=== PATIENT | female | born 1950 | race Caucasian/White ===

== ENCOUNTER 2017-11-24 14:30 | Inpatient (IN) | payer MEDICARE, BC ==
[2017-11-24 15:41] LABS: Hemoglobin 11.6 g/dL (12.0-16.0); Mean Corpuscular HGB CONC 35.4 g/dL (32.0-36.0); Mean Corpuscular Hemoglobin 30.8 pg (27.0-31.0); Mean Corpuscular Volume 86.9 fl (81.0-99.0); Mean Platelet Volume 7.2 fL (7.4-10.4); Platelet Count 279 thou/uL (130-400); RBC Distribution Width 11.5 % (11.5-14.5); Red Blood Cell (RBC) Count 3.78 mill/uL (4.20-5.40); White Blood Cell (WBC) Count 6.7 thou/uL (4.8-10.8)
[2017-11-24 16:00] LABS: Anion Gap 16 mmol/L (10-20); BUN (Urea Nitrogen) 29 mg/dL (9.8-20.1); Calc. Creatinine Clearance 0 mL/min (70-130); Calcium 8.3 mg/dL (7.8-10.44); Carbon Dioxide 24 mmol/L (23-31); Chloride 98 mmol/L (98-107); Estimated GFR-MDRD 31; Glucose 72 mg/dL (80-115); Sodium 135 mmol/L (136-145)
[2017-11-25] MEDS ORDERED: Midazolam HCl 5 mg/5 ml Vial ONE (06:32)
[2017-11-25] MEDS ORDERED: Vecuronium 10 MG VIAL ONE ×2 (06:32→14:35)
[2017-11-25] MEDS ORDERED: Fentanyl 100 MCG/2 ML VIAL ONE (06:32)
[2017-11-25] MEDS ORDERED: Dexmedetomidine 200 MCG/2 ML VIAL ONE (06:32)
[2017-11-25] MEDS ORDERED: Levofloxacin 500 mg/D5W 100 ml Premix Bag ONE (06:33)
[2017-11-25] MEDS ORDERED: Heparin 10,000 UNITS/1 ML VIAL 30,000 UNITS in Sodium Chloride 0.9% 1,000 ML FS SCH (06:45)
[2017-11-25] MEDS ORDERED: Insulin Regular 300 UNITS/3 ML VIAL ONE (08:12)
[2017-11-25] MEDS ORDERED: Albumin 5% 500 ML ONE ×2 (08:12→09:41)
[2017-11-25] MEDS ORDERED: Acetaminophen 325 MG TAB PO PRN (11:28)
[2017-11-25] MEDS ORDERED: Promethazine HCl 25 MG/ML VIAL IM PRN (11:28)
[2017-11-25] MEDS ORDERED: niCARdipine HCl 25 MG in Sodium Chloride 0.9% 250 ML 240 ML IVPB PRN (11:28)
[2017-11-25] MEDS ORDERED: Bisacodyl 10 MG SUPP PR PRN (11:28)
[2017-11-25] MEDS ORDERED: Guaifenesin DM 100-10/5 ML UDCUP PO PRN (11:28)
[2017-11-25] MEDS ORDERED: Phenylephrine 10 MG/NS 250 ML 250 ML IVPB PRN (11:28)
[2017-11-25] MEDS ORDERED: Post-Op Insulin Drip Protocol IVPB ONE (11:28)
[2017-11-25] MEDS ORDERED: Bisacodyl 5 MG TAB PO PRN (11:28)
[2017-11-25] MEDS ORDERED: Ondansetron HCl/PF 4 MG/2 ML Vial IVP PRN (11:28)
[2017-11-25] MEDS ORDERED: hydrALAZINE 20 MG/ML VIAL SLOW IVP PRN (11:28)
[2017-11-25] MEDS ORDERED: DOPamine 400 MG/D5W 250 ML 250 ML IVPB PRN (11:28)
[2017-11-25] MEDS ORDERED: Hetastarch 6% 500 ML 500 ML IVPB PRN (11:28)
[2017-11-25] MEDS ORDERED: Fentanyl 100 MCG/2 ML VIAL SLOW IVP PRN (11:28)
[2017-11-25] MEDS ORDERED: Mag-Al 1200 mg/1200 mg/30 ML UDCUP PO PRN (11:28)
[2017-11-25] MEDS ORDERED: Dextrose 50% Abboject 50 ML SYRINGE SLOW IVP PRN (11:43)
[2017-11-25] MEDS ORDERED: Insulin Regular 300 UNITS/3 ML VIAL SC PRN (11:43)
[2017-11-25] MEDS ORDERED: Dextrose 5% in Water 1,000 ML IV PRN (11:43)
--- NOTE | 2017-11-25 11:59 | OP ---
DATE OF PROCEDURE: 11/25/2017 PREOPERATIVE DIAGNOSES: Coronary artery disease, aortic valve insufficiency and stenosis. POSTOPERATIVE DIAGNOSES: Coronary artery disease, aortic valve insufficiency and stenosis. PROCEDURE: Coronary bypass graft x3, left internal mammary artery of good quality to a 1.25-mm LAD, saphenous vein good quality to a 1.5 mm OM 1 and a 2 mm OM2. SURGEON: Dr. Roman Priest RF TECHNICIAN: Dr. Smart PROCEDURE IN DETAIL: After adequate anesthesia had been obtained, the patient was prepped and draped . A JEMIMA was performed by Dr. Carrero and reviewed with Dr. Quintanilla and the patient had trivial aortic i nsufficiency and mild aortic valve stenosis and nothing was done with the valve. The patient was not deemed a candidate for an AVR based on review of this study. Sternotomy was performed while Dr. Ruiz khalil harvested the left greater saphenous vein using EVH technique. Following sternotomy, the le ft internal mammary artery was harvested entering the pleura in one small area. Heparinization was g iven, the mammary divided and passed posterior to the thymus gland. Aorta and right atrium were pedro ulated and after institution of cardiopulmonary bypass, vessels were inspected for grafting. The aor ta was cross-clamped and a liter of cold blood cardioplegia was given through the aortic root. The a ortic root remained tense during the cardioplegic administration, although there was some left ventri cular distention. Following completion of this, distal anastomoses were completed. The clamp was re moved and a partial occluding clamp placed, and 2 proximal anastomoses performed and marked with ring s. Following completion of this, the patient was weaned from cardiopulmonary bypass, cannula was rem jonelle, and the aortic cannulation site was secured with an additional 4-0 Prolene. Mediastinal and le ft pleural drains were placed. All suture lines were reinspected for bleeding due to some oozing. F ollowing this, the sternum was reapproximated with #7 interrupted wire using vancomycin paste on the sternal edges, platelet rich blood, and platelet-poor plasma. Subcutaneous tissue and skin were clos ed in layers.
[2017-11-25 12:00] LABS: #Eosinphils 0.1 thou/uL (0.0-0.7); #Lymphocytes 1.1 thou/uL (1.20-3.40); #Monocytes 0.3 thou/uL (0.11-0.59); #Neutrophils 10.1 thou/uL (1.40-6.50); %Basophils 0.1 % (0.0-1.0); %Eosinophils 0.7 % (0.0-10.0); %Lymphocytes 9.6 % (21.0-51.0); %Monocytes 2.3 % (0.0-10.0); %Neutrophils 87.2 % (42.0-75.0); Hemoglobin 6.8 g/dL (12.0-16.0); Mean Corpuscular Hemoglobin 29.9 pg (27.0-31.0); Mean Platelet Volume 6.8 fL (7.4-10.4); Platelet Count 127 thou/uL (130-400); RBC Distribution Width 11.4 % (11.5-14.5); Red Blood Cell (RBC) Count 2.26 mill/uL (4.20-5.40); White Blood Cell (WBC) Count 11.6 thou/uL (4.8-10.8)
[2017-11-25 12:06] LABS: INR-International Normal Ratio 1.5; PTT 41.4 SEC (22.9-36.1); Prothrombin Time 18.9 SEC (12.0-14.7)
[2017-11-25 12:07] LABS: ALV-art Gradient 173.025 (0-20); Actual Bicarbonate (HCO3a) 19.8 mEq/L (22-26); Base Excess (BEa) -3.2 mEq/L (0 (+/-) 2.5); CO2 Tension 27.1 mmHg (35.0-45.0); Calcium, Ionized 0.8 mmol/L (1.12-1.30); Hematocrit-ABG 19.3 % (36.0-47.0); Hemoglobin (Hb) 6.7 g/dL (12.0-16.0); O2 Tension (PaO2) 149.6 mmHg (80.0-100.0); Puncture Site ALINE; pH, Arterial 7.48 (7.35-7.45)
[2017-11-25 12:21] VITALS: BMI 28.2
[2017-11-25 12:25] LABS: Anion Gap 12 mmol/L (10-20); BUN (Urea Nitrogen) 28 mg/dL (9.8-20.1); Calc. Creatinine Clearance 51 mL/min (70-130); Calcium 5.8 mg/dL (7.8-10.44); Carbon Dioxide 23 mmol/L (23-31); Chloride 106 mmol/L (98-107); Estimated GFR-MDRD 42; Glucose 132 mg/dL (80-115); Potassium 2.9 mmol/L (3.5-5.1); Sodium 138 mmol/L (136-145)
[2017-11-25] MEDS: Sodium Chloride 0.9% 1,000 ML IV SCH ×2 (12:27→23:10)
[2017-11-25] MEDS: Clindamycin/D5W 900 MG in Premix Bag 1 BAG IVPB SCH ×3 (12:28→23:16)
[2017-11-25] MEDS: Potassium Chloride 20 MEQ/100 ML PREMIX BAG IVPB PRN ×2 (12:29→17:59)
[2017-11-25] MEDS: Fentanyl 100 MCG/2 ML VIAL SLOW IVP PRN ×2 (13:03→15:00)
--- NOTE | 2017-11-25 13:56 | RAD ---
SINGLE VIEW OF THE CHEST: Comparison: None. History: Status post open heart surgery. FINDINGS: Single view of the chest shows a normal sized cardiomediastinal silhouette. The patient is status pos t CABG. There is an endotracheal tube with the tip below the levels of the clavicles. A right subclav esperanza central venous catheter is seen with the tip in the superior vena cava. No pneumothorax is seen. An NG tube courses of the inferior aspect of the film. IMPRESSION: Appropriate position of lines and tubes status post CABG. POS: [facility]
[2017-11-25] MEDS ORDERED: Lidocaine 2% PF 100 mg/5 ml Syringe ONE (14:35)
[2017-11-25] MEDS ORDERED: Protamine Sulfate 250 MG/25 ML VIAL ONE (14:35)
[2017-11-25] MEDS ORDERED: PHENYLEPHRINE-NS 100 MCG/ML 10 ML SYRINGE ONE (14:35)
[2017-11-25] MEDS ORDERED: Thrombin 5000 UNITS/5 ML VIAL ONE (14:35)
[2017-11-25] MEDS ORDERED: Heparin 5,000 UNITS/ML VIAL ONE (14:35)
[2017-11-25] MEDS ORDERED: Potassium Chloride 60 MEQ/30 ML VIAL ONE (14:35)
[2017-11-25] MEDS ORDERED: Calcium Chloride 1 GM/10 ML Abboject SYRINGE ONE (14:35)
[2017-11-25] MEDS ORDERED: Aminocaproic Acid 5 GM/20 ML VIAL ONE (14:35)
[2017-11-25] MEDS ORDERED: Sodium Bicarb 50 MEQ/50 ML VIAL ONE (14:35)
[2017-11-25] MEDS ORDERED: Lidocaine 1% PF 5 ML VIAL ONE (14:35)
[2017-11-25] MEDS ORDERED: Nitroglycerin 50 MG/250 ML BOT ONE (14:35)
[2017-11-25] MEDS ORDERED: Cardioplegic Soln 1,000 ML BAG ONE (14:35)
[2017-11-25] MEDS ORDERED: ePHEDrine/0.9% NaCl/PF SYRINGE 50 mg/10 ml ONE (14:35)
[2017-11-25] MEDS ORDERED: Papaverine 60 MG/2 ML VIAL ONE (14:35)
[2017-11-25] MEDS ORDERED: Magnesium 5 GM/10 ML VIAL ONE (14:35)
[2017-11-25] MEDS ORDERED: Heparin 30,000 units/30 ml VIAL ONE (14:35)
[2017-11-25 16:38] LABS: Actual Bicarbonate (HCO3a) 17.8 mEq/L (22-26); Base Excess (BEa) -4.4 mEq/L (0 (+/-) 2.5); CO2 Tension 23.6 mmHg (35.0-45.0); O2 Tension (PaO2) 180.5 mmHg (80.0-100.0)
[2017-11-25 16:39] LABS: Calcium, Ionized 0.8 mmol/L (1.12-1.30); Hemoglobin (Hb) 9.1 g/dL (12.0-16.0); Puncture Site ALINE
[2017-11-25 17:28] LABS: Hemoglobin 9.4 g/dL (12.0-16.0)
[2017-11-25] MEDS: HYDROcodone/Acetaminophen 5/325 mg Tablet PO PRN (17:39)
[2017-11-25] MEDS: Simvastatin 20 MG TAB PO SCH (20:09)
[2017-11-25] MEDS: Famotidine/PF 20 mg/2ml Vial SLOW IVP SCH (20:09)
[2017-11-26] MEDS: HYDROcodone/Acetaminophen 5/325 mg Tablet PO PRN ×6 (00:44→23:54)
[2017-11-26 04:24] LABS: Anion Gap 12 mmol/L (10-20); BUN (Urea Nitrogen) 29 mg/dL (9.8-20.1); Calc. Creatinine Clearance 41 mL/min (70-130); Carbon Dioxide 20 mmol/L (23-31); Chloride 111 mmol/L (98-107); Estimated GFR-MDRD 32; Glucose 107 mg/dL (80-115); Potassium 3.1 mmol/L (3.5-5.1); Sodium 140 mmol/L (136-145)
[2017-11-26] MEDS: Potassium Chloride 20 MEQ/100 ML PREMIX BAG IVPB PRN (04:36)
[2017-11-26 05:40] LABS: #Basophils 0.1 thou/uL (0.0-0.2); #Lymphocytes 0.5 thou/uL (1.20-3.40); #Monocytes 1.1 thou/uL (0.11-0.59); #Neutrophils 10.4 thou/uL (1.40-6.50); %Basophils 0.5 % (0.0-1.0); %Eosinophils 0.2 % (0.0-10.0); %Lymphocytes 3.8 % (21.0-51.0); %Neutrophils 86.5 % (42.0-75.0); Hemoglobin 7.3 g/dL (12.0-16.0); Mean Corpuscular HGB CONC 32.9 g/dL (32.0-36.0); Mean Corpuscular Hemoglobin 29.4 pg (27.0-31.0); Mean Corpuscular Volume 89.4 fl (81.0-99.0); Mean Platelet Volume 7.6 fL (7.4-10.4); Platelet Count 162 thou/uL (130-400); Red Blood Cell (RBC) Count 2.49 mill/uL (4.20-5.40); White Blood Cell (WBC) Count 12.1 thou/uL (4.8-10.8)
[2017-11-26] MEDS: Levothyroxine Sodium 88 MCG TAB PO SCH (05:41)
[2017-11-26] MEDS: Clindamycin/D5W 900 MG in Premix Bag 1 BAG IVPB SCH (05:45)
--- NOTE | 2017-11-26 08:24 | RAD ---
PORTABLE CHEST 1 VIEW: Date: 11/26/17 Time: 0512/ hours HISTORY: Respiratory failure. Postop open heart surgery. FINDINGS/IMPRESSION: Comparison made with exam from previous day. There has been interval removal of the endotracheal and nasogastric tubes. The remainder of the exam is otherwise stable. POS: [facility]HELLE
[2017-11-26] MEDS: Aspirin 325 MG TAB PO SCH ×2 (09:06→09:18)
[2017-11-26] MEDS: Polyethylene Glycol 3350 17 GM Packet PO SCH (09:07)
[2017-11-26] MEDS: Famotidine/PF 20 mg/2ml Vial SLOW IVP SCH ×2 (09:07→19:51)
[2017-11-26] MEDS ORDERED: Calcium Gluc 4.6 MEQ/10 ML (100 MG/ML) SLOW IVP SCH (09:15)
[2017-11-26] MEDS ORDERED: Potassium Chloride 20 MEQ TAB PO SCH ×3 (09:15→10:00)
[2017-11-26] MEDS: Sodium Chloride 0.9% 1,000 ML IV SCH (09:21)
--- NOTE | 2017-11-26 11:03 | CON ---
DATE OF CONSULTATION: 11/26/2017 SERVICE: Pulmonary Medicine. REASON FOR CONSULTATION: ICU patient. HISTORY OF PRESENT ILLNESS: The patient is a 67-year-old white female. She was in her usual state of health when she started having some dyspnea issues. She is being worked up in the outpatient setting and found to have a bad aortic stenosis, and 3-vessel coronary artery disease. She is being scheduled for routine outpatient aortic valve replacement and coronary artery bypass graft. Intraoperatively, the aortic valve was reassessed. It was determined that bet valve really was not that bad of an issue. As such, the 3-vessel coronary artery bypass graft was performed and she continues to have her aortic valve. She currently denies any fevers, chills, nausea or vomiting. She has a little bit of discomfort that prevents her from taking deep breaths or coughing. She just got some pain medicine and is committed to working on that as time goes on. Otherwise, she is progressing very nicely in the postop setting. Phenylephrine is still on board, but being weaned slowly. PAST MEDICAL HISTORY: 1. Coronary artery disease. 2. Dyslipidemia. 3. Hypertension. 4. Aortic stenosis. 5. Anemia. 6. Allergic rhinitis. 7. Hypothyroidism. 8. Peritoneal cancer, status post chemotherapy that ended in 2010. PAST SURGICAL HISTORY: 1. Thyroidectomy. 2. Laparoscopic cholecystectomy. 3. Hysterectomy. 4. Laparotomy for a tumor excision. 5. Cardiac catheterization. 6. Coronary artery bypass graft x3 vessels. FAMILY HISTORY: Noncontributory. SOCIAL HISTORY: Negative. She is a lifelong nonsmoker. She has no exposure to illicit drugs, or significant alcohol use. She has no exposure to chemicals , dust asbestos or tuberculosis. ALLERGIES: No known drug allergies. MEDICATIONS: Lists of inpatient medications were reviewed. No updates were made at this time. REVIEW OF SYSTEMS: General, head, ears, eyes, nose, throat, cardiovascular, respiratory, GI, , musculoskeletal, neurologic and skin is negative except as mentioned in the HPI. PHYSICAL EXAMINATION: VITAL SIGNS: Afebrile with T-max 99.9, pulse 69, blood pressure 109/37, respirations 14, saturation 92% on room air. GENERAL: The patient is awake and alert, in no apparent distress. LUNGS: Decent air entry. There are rhonchi on the left. No crackles or wheezing are appreciated. There is no prolonged expiratory phase. HEART: Normal rate, regular. ABDOMEN: Soft, nontender, nondistended. Bowel sounds are positive. MUSCULOSKELETAL: No cyanosis or clubbing. The right leg is wrapped. The left leg is without significant edema. : Murillo catheter in place. NEUROLOGIC: Grossly nonfocal. LABORATORY DATA: WBC 12.1, hemoglobin 7.3, platelets 162,000. INR 1.5. PH 7.50, pCO2 of 23, pO2 of 180. Creatinine 1.58 and gently trending upward. BUN 29, bicarbonate 20, chloride 111. Potassium 3.1, calcium 6.0. IMAGING: Chest x-ray demonstrates thoracostomy drainage on the left. Right- sided subclavian central venous catheter terminates in good position. Sternotomy wires are evident. ASSESSMENT: 1. Coronary artery disease, status post coronary artery bypass graft x3 vessels , postop day #1. 2. Aortic stenosis. 3. Cardiogenic shock. 4. Hypocalcemia. 5. Hypokalemia. PLAN: We will replace the potassium x2 doses. Calcium will also be replaced. I will repeat electrolytes as well as magnesium tomorrow morning. Pulmonary Critical Care will continue to follow while she remains in this location. Once she is more stable hemodynamically, we will start to mobilize her and remove some devices. 70 minutes have been devoted to this patient in various activities. I personally reviewed all imaging studies and laboratory data noted within this document. For at least half of this time, I was interacting with the patient at the bedside or coordinating care with the care team. For the remainder of the time I was immediately available to the patient in the hospital unit. DAMARI
[2017-11-26 13:28] LABS: Hemoglobin 8.4 g/dL (12.0-16.0); Platelet Count 135 thou/uL (130-400)
[2017-11-26] MEDS: Simvastatin 20 MG TAB PO SCH (19:51)
[2017-11-27] MEDS: HYDROcodone/Acetaminophen 5/325 mg Tablet PO PRN ×4 (04:27→23:29)
[2017-11-27] MEDS: Sodium Chloride 0.9% 1,000 ML IV SCH ×2 (04:33→09:03)
[2017-11-27 05:56] LABS: #Eosinphils 0.4 thou/uL (0.0-0.7); #Lymphocytes 1.3 thou/uL (1.20-3.40); #Monocytes 0.7 thou/uL (0.11-0.59); #Neutrophils 6.4 thou/uL (1.40-6.50); %Basophils 0.3 % (0.0-1.0); %Eosinophils 4.3 % (0.0-10.0); %Lymphocytes 14.6 % (21.0-51.0); %Monocytes 7.9 % (0.0-10.0); %Neutrophils 72.9 % (42.0-75.0); Hemoglobin 8.4 g/dL (12.0-16.0); Mean Corpuscular HGB CONC 33.9 g/dL (32.0-36.0); Mean Corpuscular Hemoglobin 30.5 pg (27.0-31.0); Mean Corpuscular Volume 90.1 fl (81.0-99.0); Mean Platelet Volume 7.8 fL (7.4-10.4); PLT Morphology Comment Appears Decreased; Platelet Count 113 thou/uL (130-400); RBC Distribution Width 12.3 % (11.5-14.5); Red Blood Cell (RBC) Count 2.74 mill/uL (4.20-5.40); White Blood Cell (WBC) Count 8.8 thou/uL (4.8-10.8)
[2017-11-27 06:00] LABS: Anion Gap 12 mmol/L (10-20); BUN (Urea Nitrogen) 24 mg/dL (9.8-20.1); Calc. Creatinine Clearance 56 mL/min (70-130); Calcium 6.3 mg/dL (7.8-10.44); Carbon Dioxide 20 mmol/L (23-31); Chloride 111 mmol/L (98-107); Estimated GFR-MDRD 45; Glucose 100 mg/dL (80-115); Magnesium 1.6 mg/dL (1.6-2.6); Phosphorus 3.2 mg/dL (2.3-4.7); Potassium 3.5 mmol/L (3.5-5.1); Sodium 139 mmol/L (136-145)
[2017-11-27] MEDS: Potassium Chloride 20 MEQ/100 ML PREMIX BAG IVPB PRN (06:12)
[2017-11-27] MEDS: Levothyroxine Sodium 88 MCG TAB PO SCH (06:12)
[2017-11-27] MEDS: Famotidine/PF 20 mg/2ml Vial SLOW IVP SCH ×2 (07:44→19:22)
[2017-11-27] MEDS: Aspirin 325 MG TAB PO SCH (07:44)
[2017-11-27] MEDS: Polyethylene Glycol 3350 17 GM Packet PO SCH (07:45)
[2017-11-27] MEDS ORDERED: Calcium Gluc 4.6 MEQ/10 ML (100 MG/ML) SLOW IVP SCH (08:45)
[2017-11-27] MEDS ORDERED: Magnesium 2 GM/NS 0.9% 100 ML 2 GM in Premix Bag 1 BAG IVPB SCH (08:45)
[2017-11-27] MEDS ORDERED: Diltiazem 125 MG in Sodium Chloride 0.9% 100 ML IVPB SCH (08:45)
--- NOTE | 2017-11-27 10:48 | RAD ---
SEMIUPRIGHT PORTABLE CHEST 1 VIEW: HISTORY: A 67-year-old female followup postop open heart. COMPARISON: 11/26/17. FINDINGS: Chest tubes remain in place. Recent postop midline sternotomy. Right subclavian catheter in place. No pneumothorax. Bilateral pleural effusions. IMPRESSION: Minimal bilateral pleural effusions and some mild vascular congestion. No pneumothorax or other acut e process. Continued short-term followup. POS: [facility]
[2017-11-27] MEDS ORDERED: Sodium Chloride 0.9% 1,000 ML IV SCH (11:24)
[2017-11-27] MEDS ORDERED: Calcium Gluconate 4.6 MEQ in Sodium Chloride 0.9% 100 ML IVPB SCH (11:30)
[2017-11-27] MEDS ORDERED: Furosemide 40 MG TAB PO SCH (11:45)
--- NOTE | 2017-11-27 12:04 | PRG ---
DATE OF SERVICE: 11/27/2017 SERVICE: Pulmonary Medicine. INTERVAL HISTORY: Overnight, the patient went into atrial fibrillation. She has done this before on previous hospital stays. Otherwise, there has been no interval change to her condition. She denies any current fevers, chills, nausea, vomiting or chest discomfort. Whenever she takes a deep breath or cough, she has some chest discomfort. It is preventing her from doing these things. Her oxygen r equirements are increasing ever so slightly. That being said, urine output is picking up nicely and end-organ damage is resolving. PHYSICAL EXAMINATION: VITAL SIGNS: Afebrile, pulse 73, blood pressure 99/36, respirations 19, saturation 90% on 3 liters n vitor cannula. GENERAL: The patient is awake and alert, in no apparent distress. LUNGS: Excellent air entry. There is no prolonged expiratory phase. No wheezing or rhonchi are shaw reciated. Crackles are extensive throughout the bibasilar region. HEART: Normal rate, regular. ABDOMEN: Soft, nontender, nondistended. Bowel sounds positive. MUSCULOSKELETAL: No cyanosis or clubbing. There is trace pitting in the bilateral lower extremities . NEUROLOGIC: Grossly nonfocal. LABORATORY DATA: Sodium 139, potassium 3.5, bicarbonate 20. Creatinine downtrending at 1.19. BUN i s improving. Magnesium is marginally low. Phosphorus falls within normal limits. CBC is grossly un remarkable/stable. Hemoglobin is 8.4. ASSESSMENT: 1. Acute hypoxic respiratory failure. 2. Atelectasis and mild volume overload. 3. Coronary artery disease, status post coronary artery bypass graft x3 vessels, postoperative day # 2. 4. Aortic stenosis, not critical. 5. Cardiogenic shock, resolving. 6. Hypocalcemia, improving. PLAN: We will continue focusing efforts on mobilizing the patient. A single dose of p.o. Lasix will be provided today. Her heart rates intermittently dropping into the 30s and 40s, so we will wean th e diltiazem drip. An additional dose of calcium. Potassium and magnesium also have already been rep laced, which I agree with. We will repeat electrolytes tomorrow morning. Pulmonary Critical Care wi ll continue to follow.
[2017-11-27] MEDS: Simvastatin 20 MG TAB PO SCH (19:22)
[2017-11-28] MEDS: Levothyroxine Sodium 88 MCG TAB PO SCH (05:48)
[2017-11-28 06:05] LABS: #Eosinphils 0.4 thou/uL (0.0-0.7); #Lymphocytes 1.7 thou/uL (1.20-3.40); #Monocytes 0.6 thou/uL (0.11-0.59); %Basophils 0.5 % (0.0-1.0); %Eosinophils 5.8 % (0.0-10.0); %Lymphocytes 21.9 % (21.0-51.0); %Monocytes 7.4 % (0.0-10.0); %Neutrophils 64.5 % (42.0-75.0); Hemoglobin 8.3 g/dL (12.0-16.0); Mean Corpuscular HGB CONC 34.3 g/dL (32.0-36.0); Mean Corpuscular Hemoglobin 30.8 pg (27.0-31.0); Mean Corpuscular Volume 89.8 fl (81.0-99.0); Mean Platelet Volume 7.7 fL (7.4-10.4); Platelet Count 119 thou/uL (130-400); RBC Distribution Width 12.2 % (11.5-14.5); Red Blood Cell (RBC) Count 2.68 mill/uL (4.20-5.40); White Blood Cell (WBC) Count 7.8 thou/uL (4.8-10.8)
[2017-11-28] MEDS: HYDROcodone/Acetaminophen 5/325 mg Tablet PO PRN (06:13)
[2017-11-28 06:20] LABS: Anion Gap 8 mmol/L (10-20); BUN (Urea Nitrogen) 19 mg/dL (9.8-20.1); Calc. Creatinine Clearance 70 mL/min (70-130); Calcium 6.7 mg/dL (7.8-10.44); Carbon Dioxide 26 mmol/L (23-31); Chloride 108 mmol/L (98-107); Estimated GFR-MDRD 58; Glucose 93 mg/dL (80-115); Magnesium 1.7 mg/dL (1.6-2.6); Potassium 3.1 mmol/L (3.5-5.1); Sodium 139 mmol/L (136-145)
[2017-11-28] MEDS: Polyethylene Glycol 3350 17 GM Packet PO SCH (08:29)
[2017-11-28] MEDS: Famotidine/PF 20 mg/2ml Vial SLOW IVP SCH (08:29)
[2017-11-28] MEDS: Aspirin 325 MG TAB PO SCH (08:29)
[2017-11-28] MEDS: Potassium Chloride 20 MEQ/100 ML PREMIX BAG IVPB PRN (08:32)
--- NOTE | 2017-11-28 09:31 | RAD ---
CHEST 1 VIEW: HISTORY: Heart surgery. Followup. COMPARISON: 11/27/17. FINDINGS: Cardiac silhouette is magnified and enlarged. Pulmonary vasculature is unremarkable. Bibasilar atel ectasis and pleural fluid have decreased since the previous exam. Left thoracostomy tube is now coil ed over the left lateral costophrenic angle. Other lines and tubes are unchanged in position. Cardi ac monitor leads overlie the chest. IMPRESSION: Improved aeration of the lung bases. Otherwise, stable postoperative appearance of the chest. POS: [facility]HELLE
[2017-11-28] MEDS ORDERED: HYDROcodone/Acetaminophen 5/325 mg Tablet PO PRN ×2 (10:51)
[2017-11-28] MEDS ORDERED: diphenhydrAMINE 25 MG CAP PO PRN (10:51)
[2017-11-28] MEDS ORDERED: Fentanyl 100 MCG/2 ML VIAL SLOW IVP PRN (10:51)
[2017-11-28] MEDS ORDERED: Milk Of Magnesia 30 ML UDCUP PO PRN (10:51)
[2017-11-28] MEDS ORDERED: Bisacodyl 5 MG TAB PO PRN (10:51)
[2017-11-28] MEDS ORDERED: Mag-Al 1200 mg/1200 mg/30 ML UDCUP PO PRN (10:51)
[2017-11-28] MEDS ORDERED: Bisacodyl 10 MG SUPP PR PRN (10:51)
[2017-11-28] MEDS ORDERED: Guaifenesin DM 100-10/5 ML UDCUP PO PRN (10:51)
[2017-11-28] MEDS ORDERED: Acetaminophen 325 MG TAB PO PRN (10:51)
[2017-11-28] MEDS ORDERED: Zolpidem Tartrate 5 MG TAB PO PRN (10:51)
[2017-11-28] MEDS ORDERED: Ondansetron HCl/PF 4 MG/2 ML Vial IVP PRN (10:51)
[2017-11-28] MEDS ORDERED: Mineral Oil ENEMA PR PRN (10:51)
[2017-11-28] MEDS ORDERED: Artificial Tears 18 DROP/0.9 ML EA EYE PRN (10:51)
[2017-11-28] MEDS ORDERED: Magnesium Sulfate 4 GM in Sodium Chloride 0.9% 250 ML 250 ML IVPB SCH (12:45)
--- NOTE | 2017-11-28 12:50 | PRG ---
DATE OF SERVICE: 11/28/2017 SERVICE: Pulmonary Medicine. INTERVAL HISTORY: The patient is doing really well from a respiratory standpoint. The chest tubes got removed today and she is breathing much more comfortably. She denies any chest pain, nausea, vomiting or shortness of breath. She is doing very well on incentive spirometer. She is yet to work with physical therapy. Otherwise, there has been no interval change to her condition. PHYSICAL EXAMINATION: VITAL SIGNS: Afebrile, pulse 70, blood pressure 135/48, respirations 18, saturation 95% on 3 liters nasal cannula. GENERAL: The patient is awake, alert, in no apparent distress. LUNGS: Decreased air entry at the right base. Left lung has some crackles. Otherwise, there is no prolonged expiratory phase, wheezing or rhonchi. HEART: Normal rate, regular. ABDOMEN: Soft, nontender, nondistended. Bowel sounds are positive. MUSCULOSKELETAL: No cyanosis or clubbing. There is trace pitting in the bilateral lower extremities. NEUROLOGIC: Grossly nonfocal. LABORATORY DATA: WBC 7.8, hemoglobin 8.3, platelets 119,000. INR 1.5. Potassium 3.1. Basic metabolic profile is otherwise unremarkable. Calcium is returning to normal range. Magnesium 1.7. IMAGING: Chest x-ray demonstrates improved aeration in the lung bases. Otherwise, stable postoperative appearance of the chest. Cardiomegaly is evident. ASSESSMENT: 1. Acute hypoxic respiratory failure, improving. 2. Atelectasis, resolved. 3. Coronary artery disease, status post coronary artery bypass graft x3 vessels , postoperative day #3. 4. Cardiogenic shock, resolved. 5. Hypocalcemia, improving. 6. Hypokalemia. 7. Hypomagnesemia. Magnesium and potassium will once again be replaced. The calcium will correct on its own. We would replace it if she has any blood pressure issues. Pulmonary Critical Care will continue to follow for the time being, but she is stable for transition out of the ICU to the telemetry unit. DAMARI
[2017-11-28] MEDS: Potassium Chloride 20 MEQ TAB PO SCH ×2 (13:16→17:28)
[2017-11-28] MEDS: Ketorolac Tromethamine 30 MG/ML VIAL IVP SCH ×2 (13:20→17:28)
[2017-11-28] MEDS: Simvastatin 20 MG TAB PO SCH (21:23)
[2017-11-28] MEDS: Famotidine 20 MG TAB PO SCH (21:24)
[2017-11-29] MEDS: Ketorolac Tromethamine 30 MG/ML VIAL IVP SCH ×4 (00:19→17:47)
[2017-11-29] MEDS: Levothyroxine Sodium 88 MCG TAB PO SCH (05:30)
[2017-11-29] MEDS: Potassium Chloride 10 MEQ TAB PO SCH (08:20)
[2017-11-29] MEDS: Losartan 25 MG TAB PO SCH (08:20)
[2017-11-29] MEDS: Aspirin 325 mg Enteric Coated Tablet PO SCH (08:21)
[2017-11-29] MEDS: Famotidine 20 MG TAB PO SCH ×2 (08:21→22:12)
[2017-11-29] MEDS: Metoprolol Tartrate 25 MG TAB PO SCH ×2 (08:21→22:09)
[2017-11-29] MEDS: Furosemide 40 MG TAB PO SCH (08:21)
[2017-11-29] MEDS: Polyethylene Glycol 3350 17 GM Packet PO SCH (08:24)
[2017-11-29] MEDS ORDERED: Furosemide 20 MG TAB PO SCH (09:00)
--- NOTE | 2017-11-29 11:46 | CON ---
DATE OF CONSULTATION: 11/29/2017 REASON FOR CONSULTATION: Atrial fibrillation postop. HISTORY OF PRESENT ILLNESS: Ms. Valverde is a pleasant 67-year-old woman with a history of severe lef t main disease, status post bypass surgery who in the postoperative period developed atrial fibrillat ion. She has converted back to sinus rhythm. PAST MEDICAL HISTORY: CAD status post bypass surgery, hyperlipidemia, hypertension, mild to moderate atrial fibrillation, anemia, and hypothyroidism. PAST SURGICAL HISTORY: Thyroidectomy, cholecystectomy, hysterectomy, and CABG x3. SOCIAL HISTORY: No current tobacco or alcohol use. ALLERGIES: None. MEDICATIONS: Reviewed. REVIEW OF SYSTEMS: Ten-point review of systems is reviewed and as above, otherwise negative. PHYSICAL EXAMINATION: GENERAL: Patient is a pleasant female who is in no acute distress. The patient appears her stated a ge. VITAL SIGNS: On 11/28/2017 - blood pressure 140/46, pulse 69, and temperature 97.9. NEUROLOGIC: The patient is alert and oriented times 3 with no focal neurologic deficits. HEENT: Sclerae without icterus. Mouth has moist mucous membranes with normal pallor. NECK: No JVD. Carotid upstroke brisk. No bruits bilaterally. LUNGS: Clear to auscultation with unlabored respirations. BACK: No scoliosis or kyphosis. CARDIAC: Regular rate and rhythm with normal S1 and S2. No S3 or S4 noted. No significant rubs, murmurs, thrills, or gallops noted throughout the precordium. PMI is not displa mendel. There is no parasternal heave. ABDOMEN: Soft, nontender, nondistended. No peritoneal signs present. No hepatosplenomegaly. No abnormal striae. EXTREMITIES: 2+ femoral and 2+ dorsalis pedis pulses. No cyanosis, clubbing, or edema. SKIN: No gross abnormalities. PERTINENT LABORATORY DATA: Hemoglobin 8.3, creatinine 0.95. IMPRESSION: 1. Coronary artery disease. 2. Status post bypass surgery. 3. Postoperative atrial fibrillation. RECOMMENDATIONS: The patient converted back to sinus rhythm. We would continue with low dose metopr olol b.i.d. May consider increasing her blood pressure tolerates. Incentive spirometry and rehab. Continue statin therapy.
--- NOTE | 2017-11-29 11:50 | PRG ---
DATE OF SERVICE: 11/29/2017 SUBJECTIVE: Ms. Valverde is doing well. She has converted back to sinus rhythm. She was seen sittin g up in a chair awaiting transfer to telemetry monitoring. OBJECTIVE: VITAL SIGNS: Blood pressure 143/43, pulse 89, temperature 98.1. LUNGS: Clear to auscultation. CARDIAC: Regular rate and rhythm. ABDOMEN: Soft, nontender, nondistended. EXTREMITIES: No edema. PERTINENT LABORATORY DATA: Potassium 3.1. IMPRESSION: 1. Postoperative atrial fibrillation. 2. Coronary artery disease. 3. Status post bypass surgery. RECOMMENDATIONS: 1. Continue beta deonte therapy, statin therapy. 2. Rehab and incentive spirometry. 3. Transfer to telemetry monitoring.
--- NOTE | 2017-11-29 12:48 | PRG ---
DATE OF SERVICE: 11/29/2017 SERVICE: Pulmonary Medicine INTERVAL HISTORY: The patient is doing great from a respiratory standpoint. She is breathing comfor tably. She has been in and out of atrial fibrillation overnight. That being said, she has been asym ptomatic with this. Her strength is improving. Chest tubes have been removed over [address] rength is improving dramatically. She was able to walk with physical therapy yesterday. PHYSICAL EXAMINATION: VITAL SIGNS: Afebrile, pulse 66, blood pressure 106/38, respirations 19, saturation 96% on 2 liters nasal cannula. GENERAL: The patient is awake, alert, in no apparent distress. HEENT: Normocephalic, atraumatic. Sclerae are white, conjunctivae pink. Oral mucosa is moist witho ut lesions. LUNGS: Excellent air entry. There is no prolonged expiratory phase, wheezing, rhonchi or crackles. HEART: Normal rate, regular. ABDOMEN: Soft, nontender, nondistended. Bowel sounds are positive. MUSCULOSKELETAL: No cyanosis or clubbing. There is no pitting in the bilateral lower extremities. NEUROLOGIC: Grossly nonfocal. ASSESSMENT: 1. Acute hypoxic respiratory failure, improving. 2. Atelectasis, resolved. 3. Coronary artery disease, status post coronary artery bypass graft x3 vessels, postop day #4. 4. Hypocalcemia, slowly improving. PLAN: We will recheck the patient's potassium, calcium, and magnesium tomorrow morning. Pulmonary w ill continue to follow if the patient remains in location. She is awaiting transition to the floor, but there is no telemetry beds available at this time.
[2017-11-29] MEDS: Simvastatin 20 MG TAB PO SCH (22:10)
[2017-11-30] MEDS: Ketorolac Tromethamine 30 MG/ML VIAL IVP SCH ×3 (00:19→12:36)
[2017-11-30] MEDS: Levothyroxine Sodium 88 MCG TAB PO SCH (05:47)
[2017-11-30 06:26] LABS: Anion Gap 11 mmol/L (10-20); BUN (Urea Nitrogen) 22 mg/dL (9.8-20.1); Calc. Creatinine Clearance 73 mL/min (70-130); Calcium 7.4 mg/dL (7.8-10.44); Carbon Dioxide 26 mmol/L (23-31); Chloride 109 mmol/L (98-107); Estimated GFR-MDRD 65; Glucose 91 mg/dL (80-115); Magnesium 1.6 mg/dL (1.6-2.6); Potassium 3.9 mmol/L (3.5-5.1); Sodium 142 mmol/L (136-145)
[2017-11-30] MEDS: Losartan 25 MG TAB PO SCH (08:45)
[2017-11-30] MEDS: Aspirin 325 mg Enteric Coated Tablet PO SCH (08:45)
[2017-11-30] MEDS: Furosemide 40 MG TAB PO SCH (08:46)
[2017-11-30] MEDS: Famotidine 20 MG TAB PO SCH ×2 (08:46→21:27)
[2017-11-30] MEDS: Metoprolol Tartrate 25 MG TAB PO SCH ×2 (08:46→21:27)
[2017-11-30] MEDS: Potassium Chloride 10 MEQ TAB PO SCH (08:46)
[2017-11-30] MEDS: Polyethylene Glycol 3350 17 GM Packet PO SCH (08:47)
[2017-11-30] MEDS ORDERED: Magnesium Sulfate 4 GM in Sodium Chloride 0.9% 250 ML 250 ML IVPB SCH (12:15)
--- NOTE | 2017-11-30 12:20 | PRG ---
DATE OF SERVICE: 11/30/2017 SUBJECTIVE: Ms. Valverde is doing well. She has ordered to go to telemetry monitoring, but there are no beds available. PHYSICAL EXAMINATION: VITAL SIGNS: Blood pressure 142/53, pulse 77, temperature 98.3. LUNGS: Clear to auscultation. HEART: Regular rate and rhythm. ABDOMEN: Soft, nontender, nondistended. EXTREMITIES: No edema. IMPRESSION: 1. Coronary artery disease. 2. Status post bypass surgery. 3. Postoperative atrial fibrillation, now sinus. RECOMMENDATIONS: 1. Continue aspirin, statin therapy and beta-deonte therapy. 2. Ambulation and incentive spirometry. 3. Transfer to tele when bed available.
--- NOTE | 2017-11-30 12:44 | PRG ---
DATE OF SERVICE: 11/30/2017 SERVICE: Pulmonary Medicine. INTERVAL HISTORY: The patient is doing really well from a cardiovascular and respiratory standpoint. She has been working with physical therapy. She has no specific complaints of chest pain, nausea, vomiting or shortness of breath. Nursing reports no events. PHYSICAL EXAMINATION: VITAL SIGNS: Afebrile, pulse 77, blood pressure 147/54, respirations 20, saturation 98% on room air. GENERAL: The patient is awake and alert, in no apparent distress. LUNGS: Excellent air entry. There is no prolonged expiratory phase. Minimal dependent crackles are present. No rhonchi or wheezing are appreciated. HEART: Normal rate, regular. ABDOMEN: Soft, nontender, nondistended. Bowel sounds are positive. MUSCULOSKELETAL: No cyanosis or clubbing. No pitting in the bilateral lower extremities. NEUROLOGIC: Grossly nonfocal. LABORATORY DATA: Sodium is 142. Basic metabolic profile is otherwise unremarkable. Calcium is 7.4 and improving. Magnesium remains a little low at 1.6. ASSESSMENT: 1. Acute hypoxic respiratory failure, improving. 2. Atelectasis, resolved. 3. Coronary artery disease, status post coronary artery bypass graft x3 vessels, postoperative day # 5. 4. Hypomagnesemia. PLAN: I will replace the magnesium. We will give the patient a lab holiday. From a purely respirat ory perspective, she is stable for transition out of the hospital, though I leave that to Cardiology and the surgeons ultimately decide. She has been waiting for a telemetry bed for the better part of 48 hours and is antsy to get out of the hospital. If she remains in the ICU, I will continue to foll ow, but if she leaves the floor, she will no longer have requirements for Pulmonary Critical Care and I will sign off. Please call with additional questions or concerns.
[2017-11-30] MEDS: Simvastatin 20 MG TAB PO SCH (21:27)
[2017-12-01] MEDS: Levothyroxine Sodium 88 MCG TAB PO SCH (05:33)
--- NOTE | 2017-12-01 06:47 | DIS ---
HOSPITAL COURSE: The patient was admitted on 11/25/2017 where she underwent coronary bypass grafting to the LAD, OM, and distal circumflex. Her aortic valve was interrogated with the transesophageal e cho and reviewed by Dr. Quintanilla intraoperatively and it was felt that her aortic insufficiency was tri vial and her aortic stenosis was mild. Postoperatively, she did well with a transient episode of atr ial fibrillation, treated with IV Cardizem and resolved. She will be discharged home on 12/01/2017 t o resume a medical regimen which has been prescribed. She will follow up with me in about 2 weeks. Discharge and follow up instructions were given.
[2017-12-01 08:05] VITALS: BP 138/63; TEMP 98.5
[2017-12-01] MEDS: Potassium Chloride 10 MEQ TAB PO SCH (08:09)
[2017-12-01] MEDS: Aspirin 325 mg Enteric Coated Tablet PO SCH (08:09)
[2017-12-01] MEDS: Famotidine 20 MG TAB PO SCH (08:10)
[2017-12-01] MEDS: Metoprolol Tartrate 25 MG TAB PO SCH (08:10)
[2017-12-01] MEDS: Losartan 25 MG TAB PO SCH (08:10)
[2017-12-01] MEDS: Furosemide 40 MG TAB PO SCH (08:11)
[2017-12-01] MEDS: Polyethylene Glycol 3350 17 GM Packet PO SCH (08:13)
--- NOTE | 2017-12-01 16:45 | PRG ---
DATE OF SERVICE: 12/01/2017 SERVICE: Pulmonary Medicine. INTERVAL HISTORY: The patient is doing really well from a respiratory standpoint. She denies any sh ortness of breath, fevers, chills, nausea, vomiting, or cough currently. Overnight, she had an episo de of some difficulty breathing with wheezing that lasted for 2 hours. It started shortly after she lied down. Ultimately, it went away and has not returned. She is still looking forward to going [facility] today. She has had no chest discomfort and she has been able to walk up and down the hallways with physical therapy today. PHYSICAL EXAMINATION: VITAL SIGNS: Afebrile, pulse 69, blood pressure 138/63, respirations 16, saturation 95% on room air. GENERAL: The patient is awake and alert, in no apparent distress. LUNGS: Excellent air entry. No prolonged expiratory phase is present. Minimal crackles are present . No rhonchi or wheezing. HEART: Normal rate, regular. ABDOMEN: Soft, nontender, nondistended. Bowel sounds are positive. MUSCULOSKELETAL: No cyanosis or clubbing. There is no pitting in the bilateral lower extremities. NEUROLOGIC: Grossly nonfocal. LABORATORY DATA: WBC 7.8, hemoglobin 8.3, platelets 119,000. ASSESSMENT: 1. Acute hypoxic respiratory failure, resolved. 2. Atelectasis, resolved. 3. Coronary artery disease, status post coronary artery bypass graft x3 vessels, postop day #6. PLAN: The patient is doing fantastic from a respiratory standpoint. At this point, she has no furth er requirements for inpatient pulmonary critical care opinion. As such, we will sign off. Hopefully , she will be able to go home today.
[2017-12-06 08:16] LABS: Actual Bicarbonate (HCO3a) 24.7 mEq/L (22-26); Base Excess (BEa) 3.4 mEq/L (0 (+/-) 2.5); CO2 Tension 26.8 mmHg (35.0-45.0); O2 Tension (PaO2) 402.7 mmHg (80.0-100.0); pH, Arterial 7.58 (7.35-7.45)
[2017-12-06 08:17] LABS: Analyzer IN Cardio OR; Calcium, Ionized 0.9 mmol/L (1.12-1.30); Hematocrit-ABG 29.8 % (36.0-47.0); Puncture Site ALINE
[2017-12-06 08:18] LABS: Actual Bicarbonate (HCO3a) 24.7 mEq/L (22-26); Base Excess (BEa) 0.3 mEq/L (0 (+/-) 2.5); Hematocrit-ABG 29.3 % (36.0-47.0); Hemoglobin (Hb) 9.7 g/dL (12.0-16.0); O2 Tension (PaO2) 474.7 mmHg (80.0-100.0); pH, Arterial 7.42 (7.35-7.45)
[2017-12-06 08:19] LABS: Analyzer IN Cardio OR; Calcium, Ionized 0.9 mmol/L (1.12-1.30); Puncture Site ALINE
[2017-12-06 08:21] LABS: Actual Bicarbonate (HCO3v) 27 mEq/L (22-26); Analyzer IN Cardio OR; Base Excess 1.5 mEq/L (0 (+/- 2.5)); pH (venous) 7.37 (7.35-7.45)
[2017-12-06 08:22] LABS: Hematocrit-VBG 17.6 % (35-47); Hemoglobin (Hb) 7.3 g/dL (11.7-16.1)
[2017-12-06 08:23] LABS: Actual Bicarbonate (HCO3a) 25.8 mEq/L (22-26); Base Excess (BEa) 0.7 mEq/L (0 (+/-) 2.5); O2 Tension (PaO2) 411.3 mmHg (80.0-100.0); pH, Arterial 7.39 (7.35-7.45)
[2017-12-06 08:23] LABS: Calcium, Ionized 0.73 mmol/L (1.16-1.32); Chloride (ABG LAB) 99 mmol/L (98-106); Sodium 137.9 mmol/L (133-146)
[2017-12-06 08:24] LABS: Calcium, Ionized 0.7 mmol/L (1.12-1.30); Hematocrit-ABG 18.5 % (36.0-47.0); Hemoglobin (Hb) 6.6 g/dL (12.0-16.0)
[2017-12-06 08:25] LABS: Actual Bicarbonate (HCO3a) 25.9 mEq/L (22-26); Base Excess (BEa) 0.6 mEq/L (0 (+/-) 2.5); CO2 Tension 46.1 mmHg (35.0-45.0); Hematocrit-ABG 15.5 % (36.0-47.0); Hemoglobin (Hb) 5.2 g/dL (12.0-16.0); O2 Tension (PaO2) 390.6 mmHg (80.0-100.0); pH, Arterial 7.37 (7.35-7.45)
[2017-12-06 08:25] LABS: Analyzer IN Cardio OR; Puncture Site ALINE
[2017-12-06 08:26] LABS: Analyzer IN Cardio OR; Calcium, Ionized 0.8 mmol/L (1.12-1.30); Puncture Site ALINE
[2017-12-06 08:27] LABS: Actual Bicarbonate (HCO3a) 23.3 mEq/L (22-26); Base Excess (BEa) -0.7 mEq/L (0 (+/-) 2.5); CO2 Tension 34.4 mmHg (35.0-45.0); Hematocrit-ABG 16.3 % (36.0-47.0); Hemoglobin (Hb) 5.3 g/dL (12.0-16.0); O2 Tension (PaO2) 349.6 mmHg (80.0-100.0); pH, Arterial 7.45 (7.35-7.45)
[2017-12-06 08:28] LABS: Analyzer IN Cardio OR; Calcium, Ionized 0.8 mmol/L (1.12-1.30); Puncture Site ALINE
== END 2017-12-01 10:57 | disposition home or self-care (01) | DRG 235 ==
LOC: SURG A 11-25 05:45 → CCU 11-25 08:58 → 2NO 11-30 19:09
PROVIDERS: ADMIT Thoracic Surgery (Cardiothoracic Vascular Surgery); ATTEND Thoracic Surgery (Cardiothoracic Vascular Surgery)
PROC: 02100Z9 Bypass Coronary Artery, One Artery from Left Internal Mammary, Open Approach (ICD-10-PCS; principal; 2017-11-25)
PROC: 021109W Bypass Coronary Artery, Two Arteries from Aorta with Autologous Venous Tissue, Open Approach (ICD-10-PCS; 2017-11-25)
PROC: 06BQ4ZZ Excision of Left Saphenous Vein, Percutaneous Endoscopic Approach (ICD-10-PCS; 2017-11-25)
PROC: 5A1221Z Performance of Cardiac Output, Continuous (ICD-10-PCS; 2017-11-25)
PROC: 30233N1 Transfusion of Nonautologous Red Blood Cells into Peripheral Vein, Percutaneous Approach (ICD-10-PCS; 2017-11-25)
DX: I25.10 Atherosclerotic heart disease of native coronary artery without angina pectoris (principal); J95.821 Acute postprocedural respiratory failure; T81.11XA Postprocedural cardiogenic shock, initial encounter; J98.11 Atelectasis; I97.89 Other postprocedural complications and disorders of the circulatory system, not elsewhere classified; I35.2 Nonrheumatic aortic (valve) stenosis with insufficiency; Y83.2 Surgical operation with anastomosis, bypass or graft as the cause of abnormal reaction of the patient, or of later complication, without mention of misadventure at the time of the procedure; E83.42 Hypomagnesemia; I48.91 Unspecified atrial fibrillation; Y71.3 Surgical instruments, materials and cardiovascular devices (including sutures) associated with adverse incidents; E83.51 Hypocalcemia; E87.6 Hypokalemia; E03.9 Hypothyroidism, unspecified; E78.5 Hyperlipidemia, unspecified; I10 Essential (primary) hypertension; I35.0 Nonrheumatic aortic (valve) stenosis
CPT/HCPCS: 36415; 36416; 36430; 71045; 80048; 82805; 83735; 84100; 85025; 85027; 85610; 85730; 86850; 86900; 86901; 93005; 93010; 93798; 94002; 94150; A4216; J1265; J1644; J1815; J1885; J1956; J2001; J2250; J2370; J2405; J2440; J2720; J3010; J3370; J3475; J3480; J3490; J7050; P9016; P9045; S0017; S0028

== ENCOUNTER 2017-11-24 14:34 | Outpatient (CLI) | payer MEDICARE, BC | END 2017-11-24 14:35 | disposition home or self-care (01) | LOC: LABBT 14:34 | PROVIDERS: ATTEND Thoracic Surgery (Cardiothoracic Vascular Surgery) | DX: Z01.812 Encounter for preprocedural laboratory examination (principal); I25.10 Atherosclerotic heart disease of native coronary artery without angina pectoris; I35.0 Nonrheumatic aortic (valve) stenosis | CPT/HCPCS: 80048; 85027; 86850; 86900; 86901; 93005; 93010 ==

== ENCOUNTER 2018-01-14 12:11 | Inpatient (IN) | payer MEDICARE, BC ==
[2018-01-14] MEDS ORDERED: Ondansetron HCl/PF 4 MG/2 ML Vial ONE (12:47)
--- NOTE | 2018-01-14 13:08 | CT ---
NONCONTRAST HEAD CT: HISTORY: Altered mental status. Shaking. COMPARISON: None. TECHNIQUE: A noncontrast head CT is performed from the skull base to the skull vertex. FINDINGS: No parenchymal hemorrhage. No extraaxial hematoma. No midline shift. The basilar cisterns are yang nt. Brain volume is age appropriate. Cortical waggoner white matter differentiation is preserved. Vent ricles and sulci are patent and symmetric. White matter hypodensities along the left and right frontal periventricular region, extending into th e deep and subcortical white matter, are presumed to be due to chronic small vessel ischemic change. If there is concern for a white matter infarct, consider MRI. Adequate aeration of the sinuses and mastoid air cells. Intact calvarium. Cavernous carotid atheros clerosis is noted. IMPRESSION: White matter hypodensities, as described above. MRI if clinically warranted. POS: [facility]HELLE
[2018-01-14 13:09] LABS: #Basophils 0.1 thou/uL (0.0-0.2); #Eosinphils 0.1 thou/uL (0.0-0.7); #Lymphocytes 1.4 thou/uL (1.20-3.40); #Monocytes 0.6 thou/uL (0.11-0.59); #Neutrophils 5.1 thou/uL (1.40-6.50); %Basophils 1.2 % (0.0-1.0); %Eosinophils 1.3 % (0.0-10.0); %Lymphocytes 19.2 % (21.0-51.0); %Monocytes 7.7 % (0.0-10.0); %Neutrophils 70.6 % (42.0-75.0); Hemoglobin 12.5 g/dL (12.0-16.0); Mean Corpuscular Hemoglobin 29.3 pg (27.0-31.0); Mean Platelet Volume 6.6 fL (7.4-10.4); Platelet Count 283 thou/uL (130-400); RBC Distribution Width 12.5 % (11.5-14.5); Red Blood Cell (RBC) Count 4.26 mill/uL (4.20-5.40); White Blood Cell (WBC) Count 7.2 thou/uL (4.8-10.8)
[2018-01-14 13:21] LABS: ALT (SGPT) 8 U/L (8-55); AST (SGOT) 17 U/L (5-34); Albumin 4.4 g/dL (3.4-4.8); Alkaline Phosphatase 111 U/L (40-150); Anion Gap 17 mmol/L (10-20); BUN (Urea Nitrogen) 24 mg/dL (9.8-20.1); Bilirubin, Total 0.9 mg/dL (0.2-1.2); Calc. Creatinine Clearance 0 mL/min (70-130); Calcium 10.3 mg/dL (7.8-10.44); Carbon Dioxide 28 mmol/L (23-31); Chloride 90 mmol/L (98-107); Estimated GFR-MDRD 29; Globulin 3.7 g/dL (2.4-3.5); Glucose 120 mg/dL (80-115); Potassium 3.9 mmol/L (3.5-5.1); Protein, Total 8.1 g/dL (6.0-8.3); Sodium 131 mmol/L (136-145)
[2018-01-14 13:29] LABS: Bilirubin Negative (Negative); Blood, Urine Negative (Negative); Clarity CLOUDY (Clear); Glucose, Urine (Dipstick) Negative (Negative); Leukocyte Negative (Negative); Nitrite Negative (Negative); Protein, Urine (Dipstick) 30 mg/dL (Neg-Trace); Specific Gravity, Urine 1.019 (1.002-1.036); Urobilinogen 0.2 mg/dL (0.2-1.0); pH, Urine 7.5 (5.0-9.0)
[2018-01-14 13:34] LABS: Bacteria/HPF Rare-Few HPF (None Seen); Hyaline Casts/LPF 0-3 HYALINE CAST LPF (0-3 Hyaline); RBC/HPF 0-3 HPF (0-3); Squamous Epithelial 0-3 HPF (0-3); WBC/HPF 0-3 HPF (0-3)
[2018-01-14] MEDS ORDERED: cefTRIAXone\\ROCEPHIN 2 GM in Sodium Chloride 0.9% 100 ML IVPB SCH (14:00)
[2018-01-14 15:04] LABS: Color Of CSF Supernatant COLORLESS (Colorless); Tube # 1; Unspun CSF Color COLORLESS (Colorless)
[2018-01-14 15:07] LABS: CSF Source CSF; Clarity Clear (Clear); RBC Count - Manual 170 /cumm (None Seen); Tube # 4; WBC/NonHematics Count - Manual 1 /cumm (0-5)
[2018-01-14 15:18] LABS: CSF, Glucose 54 mg/dl (40-70); CSF, Protein 44 mg/dL (15-40)
[2018-01-14 15:39] LABS: CSF Source CSF; Clarity Clear (Clear); RBC Count - Manual 122 /cumm (None Seen); Tube # 3; WBC/NonHematics Count - Manual 2 /cumm (0-5)
--- NOTE | 2018-01-14 17:43 | HP ---
DATE OF ADMISSION: 01/14/2018 REASON FOR CONSULTATION: Altered mental status. HISTORY OF PRESENT ILLNESS: This is a 67-year-old white female with known history of CABG done in [facility] of this year, has been going to rehab as suggested by her tear down man and Dr. Priest. The pat ient has been closely followed up with them. The family certainly noticed that the patient was havin g some nausea and vomiting for the past 1 week and associated with severe intractable headache of 8/1 0 in intensity. Today, the patient's mental status certainly changed and she was speaking in sentenc es, which does not make sense and was having some slurring in the speech, so the patient was immediat venita brought to the ER for further evaluation. The patient had a CT of the head in the ER which did n ot show any evidence of acute intracranial hemorrhage. It showed white matter hypodensities, chronic small vessel ischemic changes were noted and was suggesting for MRI. The patient was seen in the ER along with the family members at the bedside. She is completely disor iented, unable to give any history at this time. The patient has a past medical history of hypertens ion and hyperlipidemia, which seems to be well controlled. She has a history of atrial fibrillation and also anemia. PAST MEDICAL HISTORY: 1. Coronary artery disease, coronary artery bypass grafting. 2. Hyperlipidemia. 3. Hypertension. 4. Mild to moderate atrial fibrillation. 5. Anemia. 6. Hypothyroidism. PAST SURGICAL HISTORY: Thyroidectomy, cholecystectomy, hysterectomy, and CABG x3. SOCIAL HISTORY: No history of smoking. No history of alcohol. She lives on her own independently. ALLERGIES: None. MEDICATIONS: Reviewed and reconciled. ALLERGIES: ISOSORBIDE and PENICILLIN. REVIEW OF SYSTEMS: All the review of systems have been reviewed with the daughters at the bedside, b ut the patient herself was not able to give any specific history because of her altered mental status . PHYSICAL EXAMINATION: VITAL SIGNS: Blood pressures are 146/88, heart rate is 88, respiratory rate is 19, saturation is 100 % on room air. GENERAL: The patient is moderately built and moderately nourished. She does not appear to be in acu te distress at this time. She is drowsy and lethargic as she received a ketamine injection for spina l tap. HEENT: Atraumatic, normocephalic. PERRLA. Extraocular movements were intact. Oropharynx was pink and moist. CARDIOVASCULAR: S1, S2 normal. No murmurs, rubs or gallops. LUNGS: Bilateral air entry was equal. No wheezing, no crackles. ABDOMEN: Soft, nontender, no guarding, no rebound tenderness. Bowel sounds normal. MUSCULOSKELETAL: No calf tenderness. No pedal edema. No joint tenderness. No joint swelling. SKIN: No cyanosis or erythema, no rash, no pallor. OUTREACH LIBRARIAN: Cranial nerve examination II-XII intact. No focal deficits were noted. LABORATORY DATA: WBC 7.2, hemoglobin 12.5, hematocrit 36.5, platelets of 283. Sodium 131, potassium 3.9, chloride is 90, bicarbonate is 28, BUN is 24, creatinine 1.75, GFR of 29. CSF analysis showed an evidence of clear colorless fluid with one WBC, no signs of meningitis. ASSESSMENT: 1. Acute encephalopathy. 2. Acute hyponatremia. 3. Acute kidney injury, moderate dehydration. 4. History of atrial fibrillation. 5. History of coronary artery disease with coronary artery bypass graft. PLAN: 1. The patient had a complete ischemic workup, no evidence of any UTI, no evidence of any pneumonia on the chest x-ray, no signs of any infection. Spinal tap was also done at this time, did not show any evidence of infection, but they could always get evidence of a viral meningitis based on the symp toms of headache and vomiting. At this time, we will continue the patient on IV antibiotics with Austin ephin 2 grams daily and vancomycin. We will consult Neurology in the morning. 2. The patient has hyponatremia, but this is mild and this may not be contributing to her present co mplaint. We will continue with the normal saline at this time at 75 an hour and closely monitor. 3. The patient has more moderate to severe dehydration with worsening renal functions. At this time , we will continue the above fluids and avoid any nephrotoxic medications at this time. 4. The patient has a CT done which showed no possible evidence of ischemic white matter disease. An MRI was recommended. We will order an MRI to look for any evidence of a TIA or this could also be a n evidence of acute stroke as the patient has history of atrial fibrillation and she is not on any bl ood thinners. We will continue with the metoprolol. The patient is on for atrial fibrillation and w e will start the patient on aspirin, as the patient had a negative CT for any intracranial hemorrhage . 5. History of coronary artery disease and CABG. We will plan to consult Dr. Pena just to make sure that he is aware of the patient being in the hospital, but the patient did not have any congesti ve heart failure or any coronary artery disease problems. 6. Deep venous thrombosis prophylaxis with Lovenox. I spent 75 minutes with this patient.
[2018-01-14] MEDS ORDERED: Ondansetron HCl/PF 4 MG/2 ML Vial IVP PRN (17:49)
[2018-01-14 17:50] LABS: Lactic Acid 1.9 mmol/L (0.5-2.2)
[2018-01-14 17:51] VITALS: BMI 27.0
--- NOTE | 2018-01-14 18:10 | MRI ---
MRI OF BRAIN WITHOUT IV CONTRAST: 01/14/18 HISTORY: Acute ischemic stroke. Patient was normal appearing one day ago and now has confusion, nausea, and vo miting. Family reports having difficulty with patient's blood pressure. COMPARISON: CT head on 01/14/18. FINDINGS: There is patchy confluent areas of increased FLAIR and T2 weighted signal intensity seen in the periv entricular and subcortical white matter which is nonspecific but likely attributable to chronic small vessel ischemic changes. There are no areas of restricted diffusion to suggest an acute infarction. There is mild cerebral volume loss. The ventricular system is normal in size, shape and position for the degree of sulcal atrophy. Appropriate flow voids are demonstrated at the base of the brain. The orbits, paranasal sinuses, and skull base have a normal MRI appearance. IMPRESSION: 1. No acute intracranial abnormalities demonstrated. 2. Chronic small vessel ischemic changes and cerebral volume loss. POS: MICHELLE
[2018-01-14] MEDS: Sodium Chloride 0.9% 1,000 ML IV SCH (18:30)
[2018-01-14] MEDS: Acetaminophen 325 MG TAB PO PRN (20:05)
[2018-01-14] MEDS: Vancomycin HCl 1 GM in Premix Bag 1 BAG IVPB SCH (20:12)
[2018-01-14] MEDS: Famotidine/PF 20 mg/2ml Vial SLOW IVP SCH (20:16)
[2018-01-14] MEDS ORDERED: Vancomycin HCl 1 GM in Sodium Chloride 0.9% 250 ML 250 ML IVPB SCH (21:00)
[2018-01-14] MEDS: HYDROcodone/Acetaminophen 5/325 mg Tablet PO PRN (21:01)
[2018-01-15] MEDS: HYDROcodone/Acetaminophen 5/325 mg Tablet PO PRN ×2 (01:02→17:52)
[2018-01-15] MEDS: Levothyroxine Sodium 88 MCG TAB PO SCH (05:28)
[2018-01-15 05:55] LABS: #Basophils 0.1 thou/uL (0.0-0.2); #Lymphocytes 2.3 thou/uL (1.20-3.40); #Monocytes 0.9 thou/uL (0.11-0.59); %Basophils 1.6 % (0.0-1.0); %Eosinophils 0.4 % (0.0-10.0); %Lymphocytes 27.9 % (21.0-51.0); Hemoglobin 11.2 g/dL (12.0-16.0); Mean Corpuscular HGB CONC 33.5 g/dL (32.0-36.0); Mean Corpuscular Hemoglobin 29.6 pg (27.0-31.0); Mean Corpuscular Volume 88.5 fl (81.0-99.0); Mean Platelet Volume 6.6 fL (7.4-10.4); Platelet Count 268 thou/uL (130-400); RBC Distribution Width 12.5 % (11.5-14.5); Red Blood Cell (RBC) Count 3.78 mill/uL (4.20-5.40); White Blood Cell (WBC) Count 8.4 thou/uL (4.8-10.8)
[2018-01-15 06:07] LABS: Anion Gap 12 mmol/L (10-20); BUN (Urea Nitrogen) 18 mg/dL (9.8-20.1); Calc. Creatinine Clearance 40 mL/min (70-130); Calcium 8.5 mg/dL (7.8-10.44); Carbon Dioxide 26 mmol/L (23-31); Chloride 94 mmol/L (98-107); Estimated GFR-MDRD 35; Glucose 85 mg/dL (80-115); Sodium 129 mmol/L (136-145)
[2018-01-15] MEDS: Vancomycin HCl 1 GM in Premix Bag 1 BAG IVPB SCH ×2 (07:41→20:23)
[2018-01-15] MEDS: Sodium Chloride 0.9% 1,000 ML IV SCH (07:41)
[2018-01-15] MEDS: Enoxaparin Sodium 40 MG/0.4 ML SYRINGE SC SCH (07:44)
[2018-01-15] MEDS: Aspirin 81 mg Enteric Coated Tablet PO SCH (07:44)
[2018-01-15] MEDS: Escitalopram Oxalate 10 mg Tablet PO SCH (07:44)
[2018-01-15] MEDS: Famotidine/PF 20 mg/2ml Vial SLOW IVP SCH ×2 (07:44→20:22)
--- NOTE | 2018-01-15 10:42 | CON ---
DATE OF CONSULTATION: 01/15/2018 CONSULTING PHYSICIAN: Hospitalist Service. IMPRESSION: Transient global amnesia versus nonconvulsive seizure. PLAN: The patient can be discharged home for outpatient monitoring. HISTORY OF PRESENT ILLNESS: Ms. Valverde is a 67-year-old white female who was in her normal state of health until yesterday. Her daughter called her and was talking to her on the phone and noticed yamel t she was not picking the correct words appropriate to the situation. She sent her sister to go [facility] on her and found that she was acting a bit incoherently. She did not recognize her own vehicle and things around the house did not seem to be appropriately closed and in the right place. She was bro ught to the emergency room and they noticed that her speech became incoherent. She had a CT and an M RI of the brain, both of which were unremarkable. She had a lumbar puncture done, which showed no wh ite cells, just a few red cells with normal protein and glucose measures. The remainder of her lab w ork was all unremarkable for any metabolic abnormalities. She does not recall anything that happened yesterday. She awoke this morning in the hospital bed and did not know how she had gotten here. Stephanie chávez is back to her normal state of mind based on her daughter's assessment as well. She has never had anything like this in the past. There is no past history of seizures or other neurologic problems. PAST MEDICAL HISTORY: As per chart. ALLERGIES: PENICILLIN, ISOSORBIDE. SOCIAL HISTORY: No tobacco, alcohol, or illicit drug use. FAMILY HISTORY: Noncontributory. REVIEW OF SYSTEMS: Positive for some nausea and vomiting yesterday. PHYSICAL EXAMINATION: GENERAL: She is a healthy appearing elderly woman, in no distress. VITAL SIGNS: Have been stable. She has been afebrile since admission, although there was some trans ient recorded fever of 101. HEENT: Pupils equal and reactive. Conjunctivae clear. Oropharynx clear. NECK: Supple. EXTREMITIES: No cyanosis, clubbing or edema. NEUROLOGIC: She is alert and appropriate. Her speech is fluent and clear. Exam is nonfocal. No ab normal movements were seen. IMAGING AND LABORATORY WORK: Were all reviewed. SUMMARY: A 67-year-old woman with transient amnesia and some garbled speech. Her workup has been co mpletely negative. I suspect that this is most likely transient global amnesia and should not recur unless it is due to an underlying epileptic etiology. I will be happy to follow in her care.
[2018-01-15] MEDS ORDERED: Potassium Chloride 20 MEQ TAB PO SCH ×2 (12:45→17:45)
[2018-01-15] MEDS ORDERED: cefTRIAXone\\ROCEPHIN 2 GM in Sodium Chloride 0.9% 100 ML IVPB SCH (13:00)
--- NOTE | 2018-01-15 13:21 | CON ---
DATE OF CONSULTATION: 01/15/2018 REASON FOR CONSULTATION: Altered mentation and recent CABG. PRIMARY COMBINATION MACHINE TENDER: Dr. Manoj Pena. HISTORY OF PRESENT ILLNESS: Ms. Valverde is a pleasant 67-year-old black female, who comes to the [facility] for altered mental status. She was very altered yesterday and confused. She did not know who she was, she was found to be mildly hyponatremic not enough to cause altered mentation and no infecti on was found. She was given IV antibiotics and fluids. This morning when I see her, she is back to normal, completely resolved her symptoms. Cardiology is being consulted just to make sure this is no t related to her heart. PAST MEDICAL HISTORY: 1. Coronary artery disease, status post bypass grafting just a month ago. 2. Hyperlipidemia. 3. Hypertension. 4. Anemia. 5. Hypothyroidism. 6. Postoperative atrial fibrillation. She has never had atrial fibrillation in the past. She only had in the postoperative hospital stay and it was short and resolved. She has not had any more atria l fibrillation since. This would not make her a candidate for full anticoagulation as postop atrial fibrillation is only a transient due to the post-cardiac surgery state. PAST SURGICAL HISTORY: 1. Thyroidectomy. 2. Cholecystectomy. 3. Hysterectomy. 4. CABG x3. SOCIAL HISTORY: No alcohol, tobacco, or drugs. OUTPATIENT MEDICATIONS: 1. Nexium. 2. Zyrtec. 3. Calcium and vitamin D. 4. Tramadol. 5. Zocor 10 mg a day. 6. MiraLax. 7. Lopressor 12.5 mg b.i.d. 8. Losartan 50 mg a day. 9. Hydrochlorothiazide 12.5 mg a day. 10. Levothyroxine 88 mcg a day. 11. Iron. 12. Escitalopram. 13. Aspirin 81 a day. 14. Olmesartan 40 mg a day. ALLERGIES: ISOSORBIDE and PENICILLINS. FAMILY HISTORY: Noncontributory. REVIEW OF SYSTEMS: Twelve-point review of systems was done and is all negative unless stated in the history of present illness. PHYSICAL EXAMINATION: VITAL SIGNS: Temperature 97.9, pulse 59, respiration rate 18, satting 96% on room air, and blood pre ssure is 149/68. GENERAL: Awake, alert, oriented x3, in no distress. HEENT: Normocephalic, atraumatic. NECK: Supple. LUNGS: Clear. CARDIOVASCULAR: S1 and S2. No S3 or S4. No murmurs or rubs. ABDOMEN: Soft, positive bowel sounds. EXTREMITIES: No edema. SKIN: Warm and dry. LABORATORY WORK: Reviewed. CBC was unremarkable. CMP: Sodium was 131, actually went down to 129, and a potassium went down to 3.0. Creatinine 1-1.75 down to 1.49. UA was unremarkable. EKG was reviewed. Chest x-ray was reviewed. CT of the brain and MRI of the brain were reviewed. No acute intracranial abnormality, chronic small-vessel ischemic changes. ASSESSMENT AND PLAN: 1. Altered mentation. 2. Postop atrial fibrillation: This is not an indication for anticoagulation as this was only found in the postop state. I went back on her records as far as 2013, and there is no mention of atrial f ibrillation at any point. At this point, she would have to recur atrial fibrillation for her to be t reated as paroxysmal atrial fibrillation patient. It does not count, it is only in the postoperative state. 3. Altered mental status is resolved with just IV fluids and IV antibiotics. Unlikely that this is related to her surgery or to any cardiac issues. Thank you for letting us participate in the care of your patient. We will sign off. Please call eleanor darnell any questions.
--- NOTE | 2018-01-15 13:31 | PDOC.PN ---
- Subjective Encounter Start Date: 01/15/18 Encounter Start Time: 12:00 Lorraine Seen today, Her Symptoms returned to normal, but after an hour , she again was mumbling words with repeat symptoms of headache. - Objective Resuscitation Status: Resuscitation Status FULL:Full Resuscitation MAR Reviewed: Yes Vital Signs & Weight: Vital Signs (12 hours) Temp Pulse Resp BP Pulse Ox 01/15/18 12:23 97.8 F 59 L 18 149/68 H 96 01/15/18 08:00 97.9 F 62 16 149/70 H 94 L Weight Weight 157 lb 8 oz I&O: 01/14/18 01/15/18 01/16/18 06:59 06:59 06:59 Intake Total 480 Balance 480 Result Diagrams: 01/15/18 05:18 01/15/18 05:18 Radiology Reviewed by me: Yes EKG Reviewed by me: Yes Phys Exam - Physical Examination HEENT: PERRLA Neck: no nodes Respiratory: no wheezing, no rales Cardiovascular: RRR, no significant murmur Gastrointestinal: soft, non-tender Musculoskeletal: no edema, pulses present Worseing Mumbling of words with sluured speech Skin: no rash, normal turgor Dx/Plan (1) Acute encephalopathy Code(s): G93.40 - ENCEPHALOPATHY, UNSPECIFIED Status: Acute Comment: Unknown cause, Will continue IV Rocephin/ vancomycin,m due to persistant symptoms of headache with Altered mentation. Will plan for EEG routine, follow neurology recommedations. (2) Intractable headache Code(s): R51 - HEADACHE Status: Acute Qualifiers: Headache chronicity pattern: unspecified pattern Comment: Will continue with pain management, No Neck stiffness noted. (3) Acute hypokalemia Code(s): E87.6 - HYPOKALEMIA Status: Acute Comment: Will give po potassium.Likely from HCTZ. (4) Hyponatremia Code(s): E87.1 - HYPO-OSMOLALITY AND HYPONATREMIA Status: Acute Comment: Likely from HCTZ, will hold off on this medication. (5) Amnesia, global, transient Code(s): G45.4 - TRANSIENT GLOBAL AMNESIA Status: Acute Comment: return of Symptms so will continue to monitor her today. (6) CAD (coronary artery disease) of artery bypass graft Code(s): I25.810 - ATHEROSCLEROSIS OF CABG W/O ANGINA PECTORIS Status: Acute - Plan cont current plan of care, plan discussed w/ family, PT/OT, high school social science teacher, speech therapy, respiratory therapy, DVT proph w/lovenox * . - Discharge Day Encounter end time: 12:35 Review of Systems - Review of Systems Eyes: Pain, Other (Pain on moving her eyes) ENT: negative: Ear Pain, Ear Discharge, Nose Pain, Nose Discharge, Nose Congestion, Mouth Pain, Mouth Swelling, Throat Pain, Throat Swelling, Other Respiratory: negative: Cough, Dry, Shortness of Breath, Hemoptysis, SOB with Excertion, Pleuritic Pain, Sputum, Wheezing Cardiovascular: negative: chest pain, palpitations, orthopnea, paroxysmal nocturnal dyspnea, edema, light headedness, other Gastrointestinal: negative: Nausea, Vomiting, Abdominal Pain, Diarrhea, Constipation, Melena, Hematochezia, Other Genitourinary: negative: Dysuria, Frequency, Incontinence, Hematuria, Retention , Other Neurological: Change in Speech, Confusion - Medications/Allergies Allergies/Adverse Reactions: Allergies Allergy/AdvReac Type Severity Reaction Status Date / Time isosorbide Allergy Intermediate low bp Verified 11/24/17 15:03 Penicillins Allergy Intermediate itching Verified 11/24/17 14:56 Medications: Current Medications Acetaminophen (Tylenol) 650 mg PO Q4H PRN PRN Reason: Headache/Fever or Pain Last Admin: 01/14/18 20:05 Dose: 650 mg Hydrocodone Bitart/Acetaminophen ([place] 5/325) 1 tab PO Q4H PRN PRN Reason: Moderate Pain (4-6) Last Admin: 01/15/18 01:02 Dose: 1 tab Aspirin (Ecotrin) 81 mg PO DAILY [facility] Last Admin: 01/15/18 07:44 Dose: 81 mg Enoxaparin Sodium (Lovenox) 40 mg SC 0900 [facility] Last Admin: 01/15/18 07:44 Dose: 40 mg Escitalopram Oxalate (Lexapro) 10 mg PO DAILY [facility] Last Admin: 01/15/18 07:44 Dose: 10 mg Famotidine (Pepcid) 20 mg SLOW IVP Q12HR [facility] Last Admin: 01/15/18 07:44 Dose: 20 mg HCTZ/Losartan Potassium (Hyzaar 50/12.5) 1 tab PO DAILY [facility] Last Admin: 01/15/18 10:30 Dose: 1 tab Ceftriaxone Sodium 2 gm/ (Sodium Chloride) 100 mls @ 200 mls/hr IVPB Q24HR [facility] Levothyroxine Sodium (Synthroid) 88 mcg PO 0600 [facility] Last Admin: 01/15/18 05:28 Dose: 88 mcg Metoprolol Tartrate (Lopressor) 12.5 mg PO BID [facility] Non-Formulary Medication (Iron [Iron]) 28 mg PO DAILY [facility] Non-Formulary Medication (Polyethylene Glycol 3350 [Miralax]) 17 gm PO DAILY [facility] Non-Formulary Medication (Simvastatin [Zocor]) 10 mg PO DAILY [facility] Ondansetron HCl (Zofran) 4 mg IVP Q6H PRN PRN Reason: Nausea/Vomiting Potassium Chloride (K-Dur) 40 meq PO NOW [facility] Stop: 01/15/18 14:00 Sodium Chloride (Flush - Normal Saline) 10 ml IVF Q12HR [facility] Last Admin: 01/15/18 10:30 Dose: Not Given Sodium Chloride (Flush - Normal Saline) 10 ml IVF PRN PRN PRN Reason: Saline Flush Vancomycin HCl (Vancomycin Hcl) 1 gm 0.015 gm/kg (1 gm) IVPB Q12HR [facility]
[2018-01-15] MEDS ORDERED: Lorazepam 1 MG TAB PO SCH (14:00)
[2018-01-15] MEDS: cefTRIAXone\\ROCEPHIN 2 GM in Sodium Chloride 0.9% 100 ML IVPB SCH (15:05)
[2018-01-15 16:51] LABS: Anion Gap 15 mmol/L (10-20); BUN (Urea Nitrogen) 15 mg/dL (9.8-20.1); Calc. Creatinine Clearance 49 mL/min (70-130); Calcium 8.2 mg/dL (7.8-10.44); Carbon Dioxide 23 mmol/L (23-31); Chloride 92 mmol/L (98-107); Estimated GFR-MDRD 43; Glucose 93 mg/dL (80-115); Sodium 127 mmol/L (136-145)
[2018-01-15 16:54] LABS: Potassium 2.9 mmol/L (3.5-5.1)
[2018-01-15] MEDS: Metoprolol Tartrate 25 MG TAB PO SCH (20:23)
[2018-01-16 05:23] LABS: Potassium 3.1 mmol/L (3.5-5.1)
[2018-01-16] MEDS: Levothyroxine Sodium 88 MCG TAB PO SCH (05:32)
[2018-01-16] MEDS: Aspirin 81 mg Enteric Coated Tablet PO SCH (07:37)
[2018-01-16] MEDS: Escitalopram Oxalate 10 mg Tablet PO SCH (07:37)
[2018-01-16] MEDS: Simvastatin 5 MG TAB PO SCH (07:37)
[2018-01-16] MEDS: Ferrous Sulfate 325 MG TAB PO SCH (07:37)
[2018-01-16] MEDS: Metoprolol Tartrate 25 MG TAB PO SCH ×2 (07:38→20:10)
[2018-01-16] MEDS: Vancomycin HCl 1 GM in Premix Bag 1 BAG IVPB SCH (07:38)
[2018-01-16] MEDS: Polyethylene Glycol 3350 17 GM Packet PO SCH (07:41)
[2018-01-16] MEDS: Enoxaparin Sodium 40 MG/0.4 ML SYRINGE SC SCH (07:41)
[2018-01-16] MEDS: Famotidine/PF 20 mg/2ml Vial SLOW IVP SCH (07:41)
[2018-01-16 09:01] LABS: Vancomycin, Trough 39.1 ug/mL
[2018-01-16] MEDS: cefTRIAXone\\ROCEPHIN 2 GM in Sodium Chloride 0.9% 100 ML IVPB SCH (14:46)
--- NOTE | 2018-01-16 18:35 | PDOC.PN ---
- Subjective Encounter Start Date: 01/16/18 Encounter Start Time: 18:25 Subjective: f/u for acute encephalopathy of unclear etiology and suspicion for -: transient global amnesia. Tx with Keppra and IVF's. Overall -: feeling better without SHARIF today. Appetite improved. - Objective Resuscitation Status: Resuscitation Status FULL:Full Resuscitation MAR Reviewed: Yes Vital Signs & Weight: Vital Signs (12 hours) Temp Pulse Resp Pulse Ox 01/16/18 08:00 98.2 F 69 20 96 Weight Weight 157 lb 8 oz I&O: 01/15/18 01/16/18 01/17/18 06:59 06:59 06:59 Intake Total 720 480 Balance 720 480 Result Diagrams: 01/15/18 05:18 01/16/18 04:38 Additional Labs: Microbiology 01/14/18 15:07 Nasal swab Influenza Types A,B Direct EIA - Final 01/14/18 15:06 Spinal Fluid Culture - Pending Body Fluid Culture - Preliminary 01/14/18 14:10 Venous blood - Right Arm Blood Culture - Preliminary NO GROWTH AT 48 HOURS 01/14/18 12:35 Venous blood - Left Arm Blood Culture - Preliminary NO GROWTH AT 48 HOURS Laboratory Tests 01/14/18 01/14/18 01/15/18 12:30 13:04 05:18 Sodium 131 L 129 L Potassium 3.0 L Creatinine 1.75 H 1.49 H TSH 3rd Generation 4.7142 Vancomycin Trough 01/15/18 01/16/18 16:00 08:04 Sodium Potassium 2.9 L* Creatinine TSH 3rd Generation Vancomycin Trough 39.1 H* Radiology Reviewed by me: Yes (2D echo - EF 60-65%, Grade I/III diast dysfx, mod aortic regurg) Phys Exam - Physical Examination Constitutional: NAD HEENT: PERRLA, oral pharynx no lesions Neck: no JVD, supple Respiratory: no wheezing, clear to auscultation bilateral Cardiovascular: RRR Gastrointestinal: soft, non-tender, no distention, positive bowel sounds Musculoskeletal: no edema, pulses present Neurological: normal sensation, moves all 4 limbs Psychiatric: A&O x 3 Skin: normal turgor, cap refill <2 seconds Dx/Plan (1) Acute encephalopathy Code(s): G93.40 - ENCEPHALOPATHY, UNSPECIFIED Status: Acute Comment: Likely multifactorial including metabolic component with hyponatremia, ? influence from Trigeminal neuralgia (2) Amnesia, global, transient Code(s): G45.4 - TRANSIENT GLOBAL AMNESIA Status: Acute Comment: Resolved, plan for EEG in am, Keppra 500mg BID (3) CARLO (acute kidney injury) Code(s): N17.9 - ACUTE KIDNEY FAILURE, UNSPECIFIED Status: Acute Comment: Improved, encouragre increased free-H20, d/c HCTZ, avoid nephrotoxic meds (4) Intractable headache Code(s): R51 - HEADACHE Status: Acute Qualifiers: Headache chronicity pattern: unspecified pattern Comment: Resolving, continue pain control prn, monitor for recurrence (5) Acute hypokalemia Code(s): E87.6 - HYPOKALEMIA Status: Acute Comment: KCL supplementation, repeat K+ level in am (6) Hyponatremia Code(s): E87.1 - HYPO-OSMOLALITY AND HYPONATREMIA Status: Acute Comment: Likely from HCTZ, d/c HCTZ, serial Na+ assessment - Plan plan discussed w/ family, PT/OT, out of bed/ambulate, DVT proph w/SCDs Stable overall -: Continue supportive mgmt -: D/C HCTZ -: D/C Vancomycin -: Continue Rocephin another 24h then d/c * AM lab: BMP
[2018-01-16] MEDS ORDERED: Potassium Chloride 20 MEQ TAB PO SCH (19:00)
[2018-01-16] MEDS: Famotidine 20 MG TAB PO SCH (20:10)
[2018-01-16] MEDS: levETIRAcetam 500 MG TAB PO SCH (20:10)
[2018-01-17] MEDS: Acetaminophen 325 MG TAB PO PRN (01:53)
[2018-01-17] MEDS: Levothyroxine Sodium 88 MCG TAB PO SCH (05:08)
[2018-01-17 05:53] LABS: Anion Gap 12 mmol/L (10-20); BUN (Urea Nitrogen) 18 mg/dL (9.8-20.1); Calc. Creatinine Clearance 38 mL/min (70-130); Calcium 7.8 mg/dL (7.8-10.44); Carbon Dioxide 24 mmol/L (23-31); Chloride 99 mmol/L (98-107); Estimated GFR-MDRD 33; Glucose 88 mg/dL (80-115); Potassium 3.4 mmol/L (3.5-5.1); Sodium 132 mmol/L (136-145)
[2018-01-17] MEDS: Simvastatin 5 MG TAB PO SCH (08:08)
[2018-01-17] MEDS: Potassium Chloride 20 MEQ TAB PO SCH ×2 (08:08→16:05)
[2018-01-17] MEDS: Escitalopram Oxalate 10 mg Tablet PO SCH (08:09)
[2018-01-17] MEDS: Aspirin 81 mg Enteric Coated Tablet PO SCH (08:09)
[2018-01-17] MEDS: Metoprolol Tartrate 25 MG TAB PO SCH ×2 (08:09→20:04)
[2018-01-17] MEDS: levETIRAcetam 500 MG TAB PO SCH ×2 (08:09→20:05)
[2018-01-17] MEDS: Losartan 25 MG TAB PO SCH (08:09)
[2018-01-17] MEDS: Enoxaparin Sodium 40 MG/0.4 ML SYRINGE SC SCH (08:10)
[2018-01-17] MEDS: Famotidine 20 MG TAB PO SCH (08:10)
[2018-01-17] MEDS: Ferrous Sulfate 325 MG TAB PO SCH (08:10)
[2018-01-17] MEDS: Polyethylene Glycol 3350 17 GM Packet PO SCH (08:11)
[2018-01-17] MEDS: cefTRIAXone\\ROCEPHIN 2 GM in Sodium Chloride 0.9% 100 ML IVPB SCH (14:38)
--- NOTE | 2018-01-17 14:52 | PDOC.PN ---
- Subjective Encounter Start Date: 01/17/18 Encounter Start Time: 14:45 Subjective: f/u for confusional state and suspected encephalopathy. Tx with Keppra -: and IVF's after Neurology suspicious for transient global amnesia vs -: epileptic phenomena. Pt states she is fatigued, no SHARIF. - Objective Resuscitation Status: Resuscitation Status FULL:Full Resuscitation MAR Reviewed: Yes Vital Signs & Weight: Vital Signs (12 hours) Temp Pulse Resp BP Pulse Ox 01/17/18 14:48 98 F 61 18 161/55 H 97 01/17/18 08:22 98 F 62 18 188/67 H 96 01/17/18 08:00 98 F 62 18 96 Weight Weight 157 lb 8 oz I&O: 01/16/18 01/17/18 01/18/18 06:59 06:59 06:59 Intake Total 720 1480 Balance 720 1480 Result Diagrams: 01/15/18 05:18 01/17/18 05:18 Radiology Reviewed by me: Yes (EEG pending) Phys Exam - Physical Examination Constitutional: NAD HEENT: PERRLA, oral pharynx no lesions Neck: no JVD, supple Respiratory: no wheezing, clear to auscultation bilateral Cardiovascular: RRR Gastrointestinal: soft, non-tender, no distention, positive bowel sounds Musculoskeletal: no edema, pulses present Neurological: normal sensation, moves all 4 limbs Psychiatric: A&O x 3 Skin: normal turgor, cap refill <2 seconds Dx/Plan (1) Acute encephalopathy Code(s): G93.40 - ENCEPHALOPATHY, UNSPECIFIED Status: Acute Comment: Likely multifactorial including metabolic component with hyponatremia, ? influence from Trigeminal neuralgia, improved (2) Amnesia, global, transient Code(s): G45.4 - TRANSIENT GLOBAL AMNESIA Status: Acute Comment: Resolved, EEG completed but interpretation pending, Keppra 500mg BID (3) CARLO (acute kidney injury) Code(s): N17.9 - ACUTE KIDNEY FAILURE, UNSPECIFIED Status: Acute Comment: Improved, encouragre increased free-H20, d/c HCTZ, avoid nephrotoxic meds (4) Intractable headache Code(s): R51 - HEADACHE Status: Acute Qualifiers: Headache chronicity pattern: unspecified pattern Comment: Resolved, continue pain control prn, monitor for recurrence (5) Acute hypokalemia Code(s): E87.6 - HYPOKALEMIA Status: Acute Comment: KCL supplementation, repeat K+ level in am (6) Hyponatremia Code(s): E87.1 - HYPO-OSMOLALITY AND HYPONATREMIA Status: Acute Comment: Likely from HCTZ, d/c HCTZ, serial Na+ assessment, improved - Plan out of bed/ambulate, DVT proph w/SCDs Stable overall -: Continue supportive mgmt -: Keppra 500mg BID -: D/C HCTZ -: EEG results pending * Likely home in 24h * Will d/w Neurology
[2018-01-17] MEDS: HYDROcodone/Acetaminophen 5/325 mg Tablet PO PRN (20:05)
[2018-01-18] MEDS: Levothyroxine Sodium 88 MCG TAB PO SCH (06:43)
[2018-01-18] MEDS: Losartan 25 MG TAB PO SCH (08:06)
[2018-01-18] MEDS: Metoprolol Tartrate 25 MG TAB PO SCH (08:07)
[2018-01-18] MEDS: Escitalopram Oxalate 10 mg Tablet PO SCH (08:07)
[2018-01-18] MEDS: Aspirin 81 mg Enteric Coated Tablet PO SCH (08:07)
[2018-01-18] MEDS: Simvastatin 5 MG TAB PO SCH (08:07)
[2018-01-18] MEDS: Potassium Chloride 20 MEQ TAB PO SCH ×2 (08:08→17:20)
[2018-01-18] MEDS: Enoxaparin Sodium 40 MG/0.4 ML SYRINGE SC SCH (08:08)
[2018-01-18] MEDS: Polyethylene Glycol 3350 17 GM Packet PO SCH (08:08)
[2018-01-18] MEDS: levETIRAcetam 500 MG TAB PO SCH (08:08)
[2018-01-18] MEDS: Ferrous Sulfate 325 MG TAB PO SCH (08:08)
[2018-01-18] MEDS: Acetaminophen 325 MG TAB PO PRN (08:24)
[2018-01-18] MEDS ORDERED: Famotidine 20 MG TAB PO SCH (09:00)
--- NOTE | 2018-01-18 10:41 | EEG ---
Referring Physician: Brandy LEONARD EEG # [id number] TEST TYPE: ROUTINE PORTABLE INPATIENT REPORT: AN EEG USING THE INTERNATIONAL TEN-TWENTY SYSTEM OF ELECTRODE PLACEMENT WAS PERFORMED. The waking background is a 9-10 hertz alpha frequency. There is intermixed, generalized bursts of delta activity seen frequently during the study. No epileptiform features were noted. Photic stimulation was unremarkable. IMPRESSION: THIS IS AN ABNORMAL STUDY FOR THE FINDINGS OF INTERMITTENT GENERALIZED SLOWING OF UNCERTAIN ETIOLOGY. CLINICAL CORRELATION IS INDICATED. Radiator Specialist: ELIER Beam Press Operator: [email or web address]
[2018-01-18] MEDS: cefTRIAXone\\ROCEPHIN 2 GM in Sodium Chloride 0.9% 100 ML IVPB SCH (14:27)
[2018-01-18 17:40] VITALS: BP 152/54; TEMP 98.2
--- NOTE | 2018-01-18 23:43 | DIS ---
DATE OF ADMISSION: 01/14/2018 DATE OF DISCHARGE: 01/18/2018 DISCHARGE DIAGNOSES: 1. Acute encephalopathy, multifactorial, resolving. 2. Transient global amnesia, etiology unclear, resolving. 3. Acute kidney injury on chronic kidney disease, improved. 4. Intractable headache, likely tension type, resolved. 5. Acute hypokalemia, resolved. 6. Hyponatremia secondary to hydrochlorothiazide, improved. 7. Hypertension, labile. CONSULTATIONS: Dr. Sotelo with Neurology Service. PERTINENT LABORATORY DATA AND X-RAY FINDINGS: Sodium ranged between 127 to 132, potassium ranged bet ween 2.9 to 3.9, creatinine ranged between 1.23 to 1.75, estimated GFR ranged between 29 to 43, lacti c acid level 1.9. LFTs within normal limits. TSH 4.71. Serum ammonia level 21. CBC showed a hemog lobin ranging between 11.2 to 12.5. Blood cultures x2 dated 01/14/2018, showed no growth at 48 hours . CSF culture dated 01/14/2018 showed no growth at 4 days. Influenza A and B antigen negative 01/14. CT of the brain without contrast dated 01/14/2018 showed chronic small-vessel ischemic change s. MRI of the brain dated 01/14/2018 showed no acute intracranial process. Chronic ischemic white m atter changes noted with cerebral volume loss. A 2D transthoracic echocardiogram dated 01/15/2018 sh owed ejection fraction of 60%-65%. Grade I/III diastolic dysfunction. Mild aortic valve stenosis. Moderate aortic regurgitation. HOSPITAL COURSE: Patient was admitted to the medical floor after initially presenting with altered m entation with intractable headache. Patient with confusion with initial CT imaging of the brain show ing no acute process. Patient was noted with hyponatremia in the context of ongoing hydrochlorothiaz sharon use. At which point, hydrochlorothiazide was discontinued. Patient received intravenous fluids after mild acute kidney injury was noted on basic metabolic screening. Patient underwent extensive m etabolic workup including CSF sampling showing no acute infectious process with negative culture at 4 days. Patient did receive empiric IV antibiotic therapy with vancomycin and Rocephin; however, no s pecific evidence of infectious process was identified. Patient with likely multifactorial encephalop athy evaluated by the Neurology Service after undergoing neuro imaging to include MRI studies. Patie nt underwent EEG evaluation showing no evidence of epileptiform activity; however, patient was empiri kahlil managed with Keppra 500 mg b.i.d. after concern for occult seizure activity. Patient exhibited no evidence of seizure activity during the hospital course and overall remained clinically stable. Patient's overall mentation had improved by the time of discharge, at which point, patient was alert and oriented x3. Patient ambulated with physical therapy service without assistive device. Patient tolerated oral intake and voided appropriately during the hospital stay. Overall, patient remained c linically stable, meeting appropriate milestones for discharge. I have examined and reviewed physica l and laboratory findings with the patient and family members at the time of discharge and discussed disposition planning as well as follow up instructions. Patient and family have verbalized understan ding and need for followup with Neurology Service on discharge. Overall, patient is stable and ready for discharge on 01/18/2018. DISCHARGE MEDICATIONS: 1. Enteric-coated aspirin 81 mg 1 tab p.o. daily. 2. Calcium carbonate with vitamin D 1 tablet p.o. daily. 3. Zyrtec 10 mg p.o. daily. 4. Lexapro 10 mg 1 tab p.o. daily. 5. Nexium 20 mg p.o. daily. 6. Iron 28 mg p.o. daily. 7. Keppra 500 mg p.o. b.i.d. 8. Levothyroxine 88 mcg p.o. daily. 9. Cozaar 50 mg p.o. daily. 10. Lopressor 12.5 mg p.o. b.i.d. 11. Zocor 10 mg p.o. daily. 12. Tramadol 50 mg p.o. b.i.d. p.r.n. pain. FOLLOWUP: Patient will follow up with her primary care provider, Dr. Ash Ferro within 7 days of d ischarge. Patient will follow up with Dr. Solo Sotelo and to call his office for appointment time a nd date. CONDITION ON DISCHARGE: Stable. ACTIVITY: Ad-dylan. No driving until cleared by Neurology service. DIET: Heart-healthy. CODE STATUS: FULL. DISPOSITION: Home on 01/18/2018. Total time preparing and coordinating discharge is 38 minutes.
== END 2018-01-18 19:14 | disposition home or self-care (01) | DRG 70 ==
LOC: ERS 12:11 → T4-B 17:49
PROVIDERS: ADMIT Family Medicine; ATTEND Family Medicine
PROC: 009U3ZX Drainage of Spinal Canal, Percutaneous Approach, Diagnostic (ICD-10-PCS; principal; 2018-01-14)
DX: G45.4 Transient global amnesia (principal); G93.41 Metabolic encephalopathy; G93.49 Other encephalopathy; N17.9 Acute kidney failure, unspecified; R56.9 Unspecified convulsions; I48.91 Unspecified atrial fibrillation; E87.1 Hypo-osmolality and hyponatremia; E86.0 Dehydration; E87.6 Hypokalemia; I12.9 Hypertensive chronic kidney disease with stage 1 through stage 4 chronic kidney disease, or unspecified chronic kidney disease; G44.201 Tension-type headache, unspecified, intractable; T50.2X5A Adverse effect of carbonic-anhydrase inhibitors, benzothiadiazides and other diuretics, initial encounter; I25.10 Atherosclerotic heart disease of native coronary artery without angina pectoris; Z95.1 Presence of aortocoronary bypass graft; E78.5 Hyperlipidemia, unspecified; E03.9 Hypothyroidism, unspecified; Z79.82 Long term (current) use of aspirin
CPT/HCPCS: 36415; 51701; 62270; 70450; 70551; 80048; 80053; 80202; 81003; 81015; 82140; 82945; 83605; 84132; 84157; 84443; 85025; 87040; 87070; 87205; 87804; 89051; 93005; 93306; 95816; 95819; 96361; 96365; 96375; 99152; 99153; A4216; A4353; G8978-GP-CK; G8979-GP-CI; G8987-GO-CJ; G8988-GO-CI; G9165-GN-CL; G9166-GN-CI; J0696; J1650; J2405; J3370; J7050; S0028

== ENCOUNTER 2018-03-16 09:05 | Outpatient (CLI) | payer MEDICARE, BC | END 2018-03-16 09:06 | disposition home or self-care (01) | LOC: BICMAMMO 09:05 | PROVIDERS: ATTEND Internal Medicine | DX: Z12.31 Encounter for screening mammogram for malignant neoplasm of breast (principal); Z80.3 Family history of malignant neoplasm of breast; Z85.038 Personal history of other malignant neoplasm of large intestine | CPT/HCPCS: 77063; 77067 ==

== ENCOUNTER 2019-12-05 14:14 | Outpatient (CLI) | payer MEDICARE, BC ==
--- NOTE | 2019-12-07 12:40 | MMO ---
Bilateral MAMMO Bilat Screen [facility]. CLINICAL HISTORY: Patient is 69 years old and is seen for screening. The patient has the following family history of breast cancer: sister, malignant (generic). The patient has a history of other cancer at age 60. VIEWS: The views performed were: bilateral craniocaudal with tomosynthesis and bilateral mediolateral oblique with tomosynthesis. FILMS COMPARED: The present examination has been compared to prior imaging studies performed at [facility] on 08/31/2014, 11/08/2015, 11/09/2016 and 03/16/2018. This study has been interpreted with the assistance of computer-aided detection. MAMMOGRAM FINDINGS: The breasts are heterogeneously dense, which could obscure a lesion on mammography. There are stable benign appearing calcifications seen in both breasts. There are also vascular calcifications. Nodularity is stable. There are no suspicious masses, suspicious calcifications, or new areas of architectural distortion. IMPRESSION: THERE IS NO MAMMOGRAPHIC EVIDENCE OF MALIGNANCY. A ROUTINE FOLLOW-UP MAMMOGRAM IN 1 YEAR IS RECOMMENDED. THE RESULTS OF THIS EXAM WERE SENT TO THE PATIENT. ACR BI-RADS Category 2 - Benign finding MAMMOGRAPHY NOTE: 1. A negative mammogram report should not delay a biopsy if a dominant of clinically suspicious mass is present. 2. Approximately 10% to 15% of breast cancers are not detected by mammography. 3. Adenosis and dense breasts may obscure an underlying neoplasm. Reported by: MIKE NARVAEZ MD Electonically Signed: [id number]
== END 2019-12-05 14:15 | disposition home or self-care (01) ==
LOC: BICMAMMO 14:14
PROVIDERS: ATTEND Obstetrics & Gynecology
DX: Z12.31 Encounter for screening mammogram for malignant neoplasm of breast (principal); Z80.3 Family history of malignant neoplasm of breast; Z85.89 Personal history of malignant neoplasm of other organs and systems
CPT/HCPCS: 77063; 77067

== ENCOUNTER 2021-11-30 17:25 | Emergency (ER) | payer MEDICARE, BC ==
[2021-11-30] MEDS ORDERED: Acetaminophen 500 MG TAB ONE (17:55)
== END 2021-11-30 18:58 ==
LOC: ERS 17:25
DX: S70.01XA Contusion of right hip, initial encounter (principal); M54.2 Cervicalgia; R51.9 Headache, unspecified; I10 Essential (primary) hypertension; I25.10 Atherosclerotic heart disease of native coronary artery without angina pectoris; E78.5 Hyperlipidemia, unspecified; W18.11XA Fall from or off toilet without subsequent striking against object, initial encounter; Y93.E1 Activity, personal bathing and showering; Y92.002 Bathroom of unspecified non-institutional (private) residence as the place of occurrence of the external cause; Z85.89 Personal history of malignant neoplasm of other organs and systems; Z79.899 Other long term (current) drug therapy
CPT/HCPCS: 72040; 72170

== ENCOUNTER 2022-02-05 19:43 | Emergency (ER) | payer MEDICARE, BC ==
[2022-02-05 21:11] LABS: #Basophils 0.1 thou/uL (0.0-0.2); #Eosinphils 0.3 thou/uL (0.0-0.7); #Lymphocytes 1.4 thou/uL (1.20-3.40); #Monocytes 0.7 thou/uL (0.11-0.59); #Neutrophils 6.2 thou/uL (1.40-6.50); %Eosinophils 3.3 % (0.0-10.0); %Lymphocytes 16.1 % (21.0-51.0); %Monocytes 7.6 % (0.0-10.0); Mean Corpuscular HGB CONC 33.9 g/dL (32.0-36.0); Mean Corpuscular Hemoglobin 30.8 pg (27.0-31.0); Mean Corpuscular Volume 90.9 fL (78.0-98.0); Mean Platelet Volume 6.5 fL (7.4-10.4); Platelet Count 227 thou/uL (130-400); RBC Distribution Width 12.2 % (11.5-14.5); Red Blood Cell (RBC) Count 3.89 mill/uL (4.20-5.40); White Blood Cell (WBC) Count 8.6 thou/uL (4.8-10.8)
[2022-02-05 21:32] LABS: ALT (SGPT) 9 U/L (8-55); AST (SGOT) 17 U/L (5-34); Albumin 4.2 g/dL (3.4-4.8); Alkaline Phosphatase 151 U/L (40-110); Anion Gap 15 mmol/L (10-20); BUN (Urea Nitrogen) 28 mg/dL (9.8-20.1); Bilirubin, Total 0.4 mg/dL (0.2-1.2); Calc. Creatinine Clearance 0 mL/min (70-130); Calcium 8.6 mg/dL (7.8-10.44); Carbon Dioxide 24 mmol/L (23-31); Chloride 105 mmol/L (98-107); Globulin 2.9 g/dL (2.4-3.5); Glucose 153 mg/dL (83-110); Potassium 3.7 mmol/L (3.5-5.1); Protein, Total 7.1 g/dL (5.8-8.1); Sodium 140 mmol/L (136-145)
== END 2022-02-06 00:24 ==
LOC: ERS 19:43
DX: S00.83XA Contusion of other part of head, initial encounter (principal); S09.90XA Unspecified injury of head, initial encounter; S40.012A Contusion of left shoulder, initial encounter; I25.10 Atherosclerotic heart disease of native coronary artery without angina pectoris; E78.5 Hyperlipidemia, unspecified; I10 Essential (primary) hypertension; Z79.82 Long term (current) use of aspirin; Z79.890 Hormone replacement therapy; Z79.899 Other long term (current) drug therapy; W19.XXXA Unspecified fall, initial encounter
CPT/HCPCS: 36415; 70450; 70486; 71045; 72125; 72170; 76377; 80053; 85025; 93005

== ENCOUNTER 2022-07-21 06:16 | Emergency (ER) | payer MEDICARE, BC ==
[2022-07-21 06:57] LABS: #Basophils 0.1 thou/uL (0.0-0.2); #Eosinphils 0.2 thou/uL (0.0-0.7); #Lymphocytes 1.4 thou/uL (1.20-3.40); #Monocytes 0.6 thou/uL (0.11-0.59); #Neutrophils 9.5 thou/uL (1.40-6.50); %Basophils 0.6 % (0.0-1.0); %Eosinophils 1.3 % (0.0-10.0); %Lymphocytes 12.1 % (21.0-51.0); %Monocytes 5.3 % (0.0-10.0); %Neutrophils 80.7 % (42.0-75.0); Hemoglobin 13.8 g/dL (12.0-16.0); Mean Corpuscular HGB CONC 33.6 g/dL (32.0-36.0); Mean Corpuscular Hemoglobin 30.8 pg (27.0-31.0); Mean Corpuscular Volume 91.6 fL (78.0-98.0); Platelet Count 246 thou/uL (130-400); RBC Distribution Width 11.8 % (11.5-14.5); White Blood Cell (WBC) Count 11.7 thou/uL (4.8-10.8)
[2022-07-21 07:17] LABS: ALT (SGPT) 9 U/L (8-55); AST (SGOT) 14 U/L (5-34); Albumin 4.1 g/dL (3.4-4.8); Alkaline Phosphatase 92 U/L (40-110); Anion Gap 17 mmol/L (10-20); BUN (Urea Nitrogen) 18 mg/dL (9.8-20.1); Bilirubin, Total 0.6 mg/dL (0.2-1.2); Calc. Creatinine Clearance 0 mL/min (70-130); Calcium 9.6 mg/dL (7.8-10.44); Carbon Dioxide 26 mmol/L (23-31); Chloride 99 mmol/L (98-107); Estimated GFR 29; Globulin 2.9 g/dL (2.4-3.5); Glucose 161 mg/dL (83-110); Lipase 21 U/L (8-78); Potassium 3.5 mmol/L (3.5-5.1); Sodium 138 mmol/L (136-145)
[2022-07-21 07:37] LABS: Magnesium 1.8 mg/dL (1.6-2.6)
== END 2022-07-21 09:00 | disposition home or self-care (01) ==
LOC: ERS 06:16
DX: K52.9 Noninfective gastroenteritis and colitis, unspecified (principal); N18.9 Chronic kidney disease, unspecified; K56.2 Volvulus; I25.10 Atherosclerotic heart disease of native coronary artery without angina pectoris; E78.5 Hyperlipidemia, unspecified; I10 Essential (primary) hypertension
CPT/HCPCS: 36415; 71045; 74176; 80053; 83690; 83735; 84484; 85025; 93005; 94760

== ENCOUNTER 2022-08-19 17:45 | Emergency (ER) | payer MEDICARE, BC | END 2022-08-19 19:48 | LOC: ERS 17:45 | DX: S00.93XA Contusion of unspecified part of head, initial encounter (principal); G30.9 Alzheimer's disease, unspecified; I25.10 Atherosclerotic heart disease of native coronary artery without angina pectoris; E78.5 Hyperlipidemia, unspecified; I10 Essential (primary) hypertension; Z79.899 Other long term (current) drug therapy; W01.0XXA Fall on same level from slipping, tripping and stumbling without subsequent striking against object, initial encounter | CPT/HCPCS: 70450 ==

== ENCOUNTER 2024-10-11 02:41 | Inpatient (IN) | payer BC, MEDICARE ==
[2024-10-11 04:22] LABS: #Basophils 0.05 10x3/uL (0.0-0.2); #Eosinophils Less than 0.03 10x3/uL (0.0-0.7); %Basophils 0.5 % (0.0-1.0); %Eosinophils 0.2 % (0.0-10.0); %Lymphocytes 7.7 % (21.0-51.0); %Neutrophils 81.1 % (42.0-75.0); Hematocrit 30.9 % (36.0-47.0); Mean Corpuscular HGB CONC 32.4 g/dL (32.0-36.0); Mean Corpuscular Hemoglobin 28.7 pg (27.0-31.0); Mean Corpuscular Volume 88.5 fL (78.0-98.0); Mean Platelet Volume 9.2 fL (7.4-10.4); Platelet Count 141 10x3/uL (130-400); RBC Distribution Width 13.8 % (11.5-14.5); Red Blood Cell (RBC) Count 3.49 mill/uL (4.20-5.40)
[2024-10-11 05:04] LABS: ALT (SGPT) 10 U/L (8-55); AST (SGOT) 15 U/L (5-34); Albumin 3.5 g/dL (3.4-4.8); Alkaline Phosphatase 108 U/L (40-110); Anion Gap 15 mmol/L (10-20); BUN (Urea Nitrogen) 22 mg/dL (9.8-20.1); Bilirubin, Total 0.8 mg/dL (0.2-1.2); Calc. Creatinine Clearance 0 mL/min (70-130); Calcium 7.2 mg/dL (7.8-10.44); Carbon Dioxide 19 mmol/L (23-31); Chloride 106 mmol/L (98-107); Estimated GFR 36; Glucose 110 mg/dL (83-110); Potassium 3.7 mmol/L (3.5-5.1); Protein, Total 6.5 g/dL (5.8-8.1); Sodium 136 mmol/L (136-145); Troponin I 0.018 ng/mL (< 0.028)
[2024-10-11] MEDS ORDERED: Aspirin Chewable 81 MG TAB ONE (06:09)
[2024-10-11] MEDS ORDERED: Furosemide 40 MG (4 mL) VIAL ONE (06:09)
[2024-10-11] MEDS ORDERED: Nitroglycerin 2% Ointment 1 INCH/1 GM Packet ONE (06:09)
[2024-10-11 07:16] LABS: Troponin I 0.021 ng/mL (< 0.028)
[2024-10-11 08:27] VITALS: BMI 22.4
[2024-10-11 10:31] LABS: Troponin I 0.018 ng/mL (< 0.028)
[2024-10-11] MEDS ORDERED: Senokot S 8.6-50 MG TAB PO PRN (12:23)
[2024-10-11] MEDS ORDERED: Ondansetron PF 4 MG/2 ML Vial IVP PRN (12:23)
[2024-10-11] MEDS ORDERED: Bisacodyl 5 MG TAB PO PRN (12:23)
[2024-10-11] MEDS ORDERED: Ondansetron ODT 4 MG TAB PO PRN (12:23)
[2024-10-11 13:42] LABS: Anion Gap 14 mmol/L (10-20); BUN (Urea Nitrogen) 23 mg/dL (9.8-20.1); Calc. Creatinine Clearance 30 mL/min (70-130); Calcium 7.6 mg/dL (7.8-10.44); Carbon Dioxide 23 mmol/L (23-31); Chloride 108 mmol/L (98-107); Estimated GFR 34; Glucose 84 mg/dL (83-110); Potassium 3.6 mmol/L (3.5-5.1); Sodium 141 mmol/L (136-145)
[2024-10-11] MEDS: LevoFLOXacin 500 mg/D5W 500 MG in Premix 1 BAG IVPB SCH (15:48)
[2024-10-11] MEDS: Acetaminophen 325 MG TAB PO PRN (16:55)
[2024-10-11] MEDS: Sodium Chloride 0.9% 1,000 ML IV SCH (17:05)
[2024-10-11] MEDS: guaiFENesin ER 600 MG TAB PO SCH (21:20)
[2024-10-11] MEDS: Heparin 5,000 UNITS/ML VIAL SC SCH (21:20)
[2024-10-11] MEDS: Melatonin 3 MG TAB PO SCH (21:20)
[2024-10-12 04:28] LABS: #Basophils Less than 0.03 10x3/uL (0.0-0.2); %Basophils 0.2 % (0.0-1.0); %Lymphocytes 7.9 % (21.0-51.0); %Monocytes 10.1 % (0.0-10.0); %Neutrophils 78.5 % (42.0-75.0); Hematocrit 31.3 % (36.0-47.0); Hemoglobin 10.1 g/dL (12.0-16.0); Mean Corpuscular HGB CONC 32.3 g/dL (32.0-36.0); Mean Corpuscular Hemoglobin 28.3 pg (27.0-31.0); Mean Corpuscular Volume 87.7 fL (78.0-98.0); Mean Platelet Volume 9.6 fL (7.4-10.4); Platelet Count 123 10x3/uL (130-400); RBC Distribution Width 13.2 % (11.5-14.5); Red Blood Cell (RBC) Count 3.57 mill/uL (4.20-5.40)
[2024-10-12 04:44] LABS: Anion Gap 15 mmol/L (10-20); BUN (Urea Nitrogen) 24 mg/dL (9.8-20.1); Calc. Creatinine Clearance 35 mL/min (70-130); Calcium 7.2 mg/dL (7.8-10.44); Carbon Dioxide 21 mmol/L (23-31); Chloride 108 mmol/L (98-107); Estimated GFR 41; Glucose 73 mg/dL (83-110); Sodium 140 mmol/L (136-145)
[2024-10-12 04:54] LABS: Influenza A by NAA Not Detected (NotDetected); Influenza B by NAA Not Detected (NotDetected); RSV by NAA Not Detected (NotDetected); SARS-CoV-2 NAA Rapid Test Not Detected (NotDetected)
[2024-10-12] MEDS: Levothyroxine Sodium 125 MCG TAB PO SCH (05:47)
[2024-10-12] MEDS: Aspirin Chewable 81 MG TAB PO SCH (08:07)
[2024-10-12] MEDS: Carvedilol 6.25 MG TAB PO SCH (08:07)
[2024-10-12] MEDS: buPROPion 75 MG TAB PO SCH (08:07)
[2024-10-12] MEDS: Pantoprazole DR 40 MG TAB PO SCH (08:07)
[2024-10-12] MEDS: lamoTRIgine 100 MG TAB PO SCH (08:08)
[2024-10-12] MEDS: Fluticasone Propionate Nasal Spray 16 gm Bottle NASAL SCH (08:19)
[2024-10-12] MEDS ORDERED: Non-Formulary Item 1 EACH (Lamotrigine [Lamictal] 150 MG Tablet) PO SCH (09:00)
[2024-10-12 11:05] VITALS: BMI 22.4
[2024-10-12] MEDS: Benzonatate 100 MG CAP PO PRN (22:30)
[2024-10-13 05:14] LABS: #Basophils 0.03 10x3/uL (0.0-0.2); %Basophils 0.5 % (0.0-1.0); %Eosinophils 5.1 % (0.0-10.0); %Lymphocytes 13.7 % (21.0-51.0); %Monocytes 9.9 % (0.0-10.0); %Neutrophils 70.3 % (42.0-75.0); Hematocrit 29.2 % (36.0-47.0); Hemoglobin 9.4 g/dL (12.0-16.0); Mean Corpuscular HGB CONC 32.2 g/dL (32.0-36.0); Mean Corpuscular Hemoglobin 28.5 pg (27.0-31.0); Mean Corpuscular Volume 88.5 fL (78.0-98.0); Mean Platelet Volume 9.3 fL (7.4-10.4); Platelet Count 139 10x3/uL (130-400); RBC Distribution Width 13.2 % (11.5-14.5)
[2024-10-13 05:35] LABS: Anion Gap 13 mmol/L (10-20); BUN (Urea Nitrogen) 19 mg/dL (9.8-20.1); Calc. Creatinine Clearance 35 mL/min (70-130); Calcium 7.1 mg/dL (7.8-10.44); Carbon Dioxide 21 mmol/L (23-31); Chloride 112 mmol/L (98-107); Estimated GFR 41; Glucose 82 mg/dL (83-110); Potassium 3.7 mmol/L (3.5-5.1); Sodium 142 mmol/L (136-145)
[2024-10-13 07:32] VITALS: TEMP 98.1
[2024-10-13] MEDS: Donepezil HCl 10 MG TAB PO SCH (08:14)
[2024-10-13] MEDS: Amlodipine 10 MG TAB PO SCH (08:15)
[2024-10-13] MEDS: Escitalopram Oxalate 20 mg Tablet PO SCH (08:15)
[2024-10-13] MEDS: Ferrous Sulfate 325 MG TAB PO SCH (08:15)
[2024-10-13] MEDS: Lisinopril 20 MG TAB PO SCH (08:16)
[2024-10-13] MEDS: hydrALAZINE 25 MG TAB PO SCH (08:16)
[2024-10-13] MEDS: Montelukast Sodium 10 mg Tablet PO SCH (08:16)
[2024-10-13] MEDS: CALCIUM GLUC 1 GM/NS 50 ML 1 GM in Premix 1 BAG IVPB SCH (10:35)
[2024-10-13 11:49] VITALS: BP 147/66
== END 2024-10-13 15:51 | DRG 193 ==
LOC: ERS 02:41 → ERHOLD 06:24 → 2NO 14:46 → T4-A 10-12 17:15
PROVIDERS: ADMIT Internal Medicine; ATTEND Internal Medicine
DX: J18.9 Pneumonia, unspecified organism (principal); J96.01 Acute respiratory failure with hypoxia; I13.0 Hypertensive heart and chronic kidney disease with heart failure and stage 1 through stage 4 chronic kidney disease, or unspecified chronic kidney disease; N17.9 Acute kidney failure, unspecified; F39 Unspecified mood [affective] disorder; N18.9 Chronic kidney disease, unspecified; I25.10 Atherosclerotic heart disease of native coronary artery without angina pectoris; Z95.1 Presence of aortocoronary bypass graft; N18.30 Chronic kidney disease, stage 3 unspecified; E78.5 Hyperlipidemia, unspecified; F32.A Depression, unspecified; E89.0 Postprocedural hypothyroidism; I50.9 Heart failure, unspecified; E86.0 Dehydration; Z88.0 Allergy status to penicillin; Z88.8 Allergy status to other drugs, medicaments and biological substances; Z90.49 Acquired absence of other specified parts of digestive tract; Z90.710 Acquired absence of both cervix and uterus; Z85.41 Personal history of malignant neoplasm of cervix uteri
CPT/HCPCS: 0241U; 36415; 71045; 80048; 80053; 83880; 84484; 85025; 93005; 96374; J0613; J1644; J1940; J1956; J7030

== ENCOUNTER 2024-10-27 09:07 | Emergency (ER) | payer MEDICARE ==
[2024-10-27] MEDS ORDERED: EPINEPHrine 1 MG/ML VIAL ONE (09:14)
[2024-10-27] MEDS ORDERED: Famotidine/PF 20 mg/2ml Vial ONE (09:15)
[2024-10-27] MEDS ORDERED: methylPREDNISolone Sod Succ/PF 125 MG/2 ML VIAL ONE (09:15)
[2024-10-27] MEDS ORDERED: KETAMINE 100 MG/ML (5ML VIAL) ONE (09:44)
[2024-10-27] MEDS ORDERED: Tranexamic Acid 1,000 MG/10 ML VIAL ONE ×2 (10:17→10:20)
[2024-10-27] MEDS ORDERED: Sodium Chloride 0.9% 100 ML ONE (10:17)
[2024-10-27 10:27] LABS: #Basophils 0.08 10x3/uL (0.0-0.2); %Basophils 1.3 % (0.0-1.0); %Eosinophils 5.3 % (0.0-10.0); %Lymphocytes 15.9 % (21.0-51.0); %Monocytes 8.9 % (0.0-10.0); %Neutrophils 67.8 % (42.0-75.0); Hematocrit 30.3 % (36.0-47.0); Hemoglobin 9.5 g/dL (12.0-16.0); Mean Corpuscular HGB CONC 31.4 g/dL (32.0-36.0); Mean Corpuscular Hemoglobin 27.9 pg (27.0-31.0); Mean Corpuscular Volume 89.1 fL (78.0-98.0); Platelet Count 226 10x3/uL (130-400); RBC Distribution Width 14.2 % (11.5-14.5)
[2024-10-27 10:39] LABS: ALT (SGPT) 10 U/L (8-55); AST (SGOT) 17 U/L (5-34); Albumin 3.7 g/dL (3.4-4.8); Alkaline Phosphatase 130 U/L (40-110); Anion Gap 14 mmol/L (10-20); BUN (Urea Nitrogen) 25 mg/dL (9.8-20.1); Bilirubin, Total 0.5 mg/dL (0.2-1.2); Calc. Creatinine Clearance 0 mL/min (70-130); Calcium 7.3 mg/dL (7.8-10.44); Carbon Dioxide 19 mmol/L (23-31); Chloride 110 mmol/L (98-107); Estimated GFR 35; Globulin 3.5 g/dL (2.4-3.5); Glucose 78 mg/dL (83-110); Potassium 4.9 mmol/L (3.5-5.1); Protein, Total 7.2 g/dL (5.8-8.1); Sodium 138 mmol/L (136-145)
[2024-10-27 10:40] LABS: INR-International Normal Ratio 1.1; Prothrombin Time 13.7 sec (12.0-14.7)
[2024-10-27 10:41] LABS: PTT 35.6 sec (22.9-36.1)
[2024-10-27] MEDS ORDERED: diphenhydrAMINE 50 MG/ML VIAL ONE (12:22)
[2024-10-27] MEDS ORDERED: Dexamethasone 10 MG/ML VIAL ONE (12:22)
== END 2024-10-27 14:40 | disposition short-term general hospital (02) ==
LOC: ERS 09:07
DX: T78.3XXA Angioneurotic edema, initial encounter (principal); I10 Essential (primary) hypertension; E78.5 Hyperlipidemia, unspecified; Z79.899 Other long term (current) drug therapy; Z79.82 Long term (current) use of aspirin
CPT/HCPCS: 36430; 80053; 85025; 85610; 85730; 86850; 86900; 86901; J0171; J1100; J1200; J2919; J3490; P9059; 36415; 51702; 96372; 96374; 96375

== ENCOUNTER 2024-11-30 12:52 | Inpatient (IN) | payer MEDICARE ==
[2024-11-30 13:55] LABS: #Basophils 0.05 10x3/uL (0.0-0.2); %Basophils 0.6 % (0.0-1.0); %Eosinophils 0.6 % (0.0-10.0); %Lymphocytes 4.3 % (21.0-51.0); %Monocytes 7.3 % (0.0-10.0); %Neutrophils 86.2 % (42.0-75.0); Hematocrit 28.2 % (36.0-47.0); Mean Corpuscular HGB CONC 31.9 g/dL (32.0-36.0); Mean Corpuscular Hemoglobin 28.7 pg (27.0-31.0); Mean Corpuscular Volume 89.8 fL (78.0-98.0); Mean Platelet Volume 8.6 fL (7.4-10.4); Platelet Count 158 10x3/uL (130-400); RBC Distribution Width 16.7 % (11.5-14.5); Red Blood Cell (RBC) Count 3.14 mill/uL (4.20-5.40)
[2024-11-30] MEDS ORDERED: Iopamidol 370 76% 100 ML VIAL ONE (14:04)
[2024-11-30 14:12] LABS: ALT (SGPT) 9 U/L (Less than 34); AST (SGOT) 23 U/L (11-34); Albumin 3.8 g/dL (3.1-4.5); Alkaline Phosphatase 116 U/L (40-110); Anion Gap 16 mmol/L (10-20); BUN (Urea Nitrogen) 12 mg/dL (9.8-20.1); Bilirubin, Total 1.1 mg/dL (0.3-1.2); Calc. Creatinine Clearance 0 mL/min (70-130); Calcium 7.4 mg/dL (7.8-10.44); Carbon Dioxide 20 mmol/L (23-31); Chloride 103 mmol/L (98-107); Estimated GFR 40; Globulin 3.2 g/dL (2.4-3.5); Glucose 104 mg/dL (83-110); Potassium 3.6 mmol/L (3.5-5.1); Sodium 135 mmol/L (136-145)
[2024-11-30 14:16] LABS: Troponin I 0.021 ng/mL (< 0.028)
[2024-11-30] MEDS ORDERED: Furosemide 40 MG (4 mL) VIAL ONE (16:11)
[2024-11-30] MEDS ORDERED: Guaifenesin DM 100-10/5 ML UDCUP PO PRN (18:07)
[2024-11-30] MEDS ORDERED: hydrALAZINE 20 MG/ML VIAL ONE (18:57)
[2024-11-30 19:31] LABS: Troponin I Less than 0.010 ng/mL (< 0.028)
[2024-11-30] MEDS: hydrALAZINE 20 MG/ML VIAL SLOW IVP PRN (19:31)
[2024-11-30] MEDS ORDERED: Heparin 5,000 UNITS/ML VIAL ONE (21:20)
[2024-11-30] MEDS: Heparin 5,000 UNITS/ML VIAL SC SCH (21:26)
[2024-11-30] MEDS: lamoTRIgine 100 MG TAB PO SCH (22:40)
[2024-12-01 05:08] LABS: #Basophils Less than 0.03 10x3/uL (0.0-0.2); #Eosinophils Less than 0.03 10x3/uL (0.0-0.7); %Lymphocytes 3.6 % (21.0-51.0); %Monocytes 6.2 % (0.0-10.0); %Neutrophils 88.6 % (42.0-75.0); Hematocrit 27.9 % (36.0-47.0); Hemoglobin 8.9 g/dL (12.0-16.0); Mean Corpuscular HGB CONC 31.9 g/dL (32.0-36.0); Mean Corpuscular Hemoglobin 28.7 pg (27.0-31.0); Mean Platelet Volume 9.1 fL (7.4-10.4); Platelet Count 188 10x3/uL (130-400); RBC Distribution Width 16.9 % (11.5-14.5)
[2024-12-01 05:28] LABS: Anion Gap 18 mmol/L (10-20); BUN (Urea Nitrogen) 18 mg/dL (9.8-20.1); Calc. Creatinine Clearance 34 mL/min (70-130); Calcium 7.5 mg/dL (7.8-10.44); Carbon Dioxide 22 mmol/L (23-31); Chloride 103 mmol/L (98-107); Estimated GFR 38; Glucose 173 mg/dL (83-110); Potassium 3.8 mmol/L (3.5-5.1); Sodium 139 mmol/L (136-145)
[2024-12-01] MEDS ORDERED: Furosemide 40 MG (4 mL) VIAL SLOW IVP SCH (06:00)
[2024-12-01] MEDS ORDERED: Furosemide 100 MG (10 mL) VIAL SLOW IVP SCH (06:00)
[2024-12-01] MEDS: Sodium Chloride 0.9% 1,000 ML IV SCH (09:16)
[2024-12-01 14:36] LABS: Anion Gap 15 mmol/L (10-20); BUN (Urea Nitrogen) 17 mg/dL (9.8-20.1); Calc. Creatinine Clearance 38 mL/min (70-130); Calcium 7.1 mg/dL (7.8-10.44); Carbon Dioxide 23 mmol/L (23-31); Chloride 105 mmol/L (98-107); Estimated GFR 43; Glucose 109 mg/dL (83-110); Potassium 3.5 mmol/L (3.5-5.1); Sodium 139 mmol/L (136-145)
[2024-12-01] MEDS ORDERED: CATH FS SCH (16:00)
[2024-12-01] MEDS ORDERED: Benzonatate 100 MG CAP PO PRN (16:58)
[2024-12-01] MEDS ORDERED: Albuterol 2.5 MG (3 mL) NEB NEB PRN (16:58)
[2024-12-01] MEDS: Atorvastatin Calcium 10 MG TAB PO SCH (21:33)
[2024-12-01] MEDS: Donepezil HCl 10 MG TAB PO SCH (21:33)
[2024-12-01] MEDS: Melatonin 3 MG TAB PO SCH (21:33)
[2024-12-01] MEDS: lamoTRIgine 100 MG TAB PO SCH (21:33)
[2024-12-02 05:05] LABS: #Basophils Less than 0.03 10x3/uL (0.0-0.2); #Eosinophils Less than 0.03 10x3/uL (0.0-0.7); %Basophils 0.2 % (0.0-1.0); %Eosinophils 0.2 % (0.0-10.0); %Lymphocytes 13.5 % (21.0-51.0); %Monocytes 12.7 % (0.0-10.0); %Neutrophils 72.5 % (42.0-75.0); Hematocrit 25.9 % (36.0-47.0); Hemoglobin 8.2 g/dL (12.0-16.0); Mean Corpuscular HGB CONC 31.7 g/dL (32.0-36.0); Mean Corpuscular Hemoglobin 28.9 pg (27.0-31.0); Mean Corpuscular Volume 91.2 fL (78.0-98.0); Mean Platelet Volume 8.7 fL (7.4-10.4); Platelet Count 176 10x3/uL (130-400); RBC Distribution Width 16.9 % (11.5-14.5); Red Blood Cell (RBC) Count 2.84 mill/uL (4.20-5.40)
[2024-12-02] MEDS: Levothyroxine Sodium 125 MCG TAB PO SCH (05:13)
[2024-12-02 06:09] LABS: Anion Gap 19 mmol/L (10-20); BUN (Urea Nitrogen) 18 mg/dL (9.8-20.1); Calc. Creatinine Clearance 38 mL/min (70-130); Calcium 6.8 mg/dL (7.8-10.44); Carbon Dioxide 20 mmol/L (23-31); Chloride 105 mmol/L (98-107); Estimated GFR 42; Glucose 95 mg/dL (83-110); Potassium 3.5 mmol/L (3.5-5.1); Sodium 140 mmol/L (136-145)
[2024-12-02] MEDS ORDERED: CATH FS SCH (08:45)
[2024-12-02] MEDS: Escitalopram Oxalate 20 mg Tablet PO SCH (09:45)
[2024-12-02] MEDS: BuPROPion XL 150 MG ER.TAB PO SCH (09:45)
[2024-12-02] MEDS: Montelukast Sodium 10 mg Tablet PO SCH (09:45)
[2024-12-02] MEDS: Carvedilol 6.25 MG TAB PO SCH (09:45)
[2024-12-02] MEDS: Aspirin Chewable 81 MG TAB PO SCH (09:46)
[2024-12-02] MEDS: Amlodipine 5 MG TAB PO SCH (09:59)
[2024-12-02] MEDS: Furosemide 40 MG (4 mL) VIAL SLOW IVP SCH (15:27)
[2024-12-02] MEDS: Calcium Carbonate 500 MG TAB PO SCH ×2 (15:27→17:06)
[2024-12-03 05:43] LABS: #Basophils 0.03 10x3/uL (0.0-0.2); %Basophils 0.5 % (0.0-1.0); %Lymphocytes 14.9 % (21.0-51.0); %Monocytes 13.1 % (0.0-10.0); Hematocrit 26.7 % (36.0-47.0); Hemoglobin 8.5 g/dL (12.0-16.0); Mean Corpuscular HGB CONC 31.8 g/dL (32.0-36.0); Mean Corpuscular Hemoglobin 28.9 pg (27.0-31.0); Mean Corpuscular Volume 90.8 fL (78.0-98.0); Mean Platelet Volume 9.1 fL (7.4-10.4); Platelet Count 163 10x3/uL (130-400); RBC Distribution Width 16.3 % (11.5-14.5); Red Blood Cell (RBC) Count 2.94 mill/uL (4.20-5.40)
[2024-12-03 05:59] LABS: Anion Gap 14 mmol/L (10-20); BUN (Urea Nitrogen) 19 mg/dL (9.8-20.1); Calc. Creatinine Clearance 36 mL/min (70-130); Calcium 7.5 mg/dL (7.8-10.44); Carbon Dioxide 25 mmol/L (23-31); Chloride 104 mmol/L (98-107); Estimated GFR 41; Glucose 75 mg/dL (83-110); Magnesium 1.7 mg/dL (1.6-2.6); Potassium 3.3 mmol/L (3.5-5.1); Sodium 140 mmol/L (136-145)
[2024-12-03] MEDS: Cholecalciferol 1,000 UNITS (25 MCG) TAB PO SCH (09:28)
[2024-12-03] MEDS: Calcium Carbonate 500 MG TAB PO SCH (09:28)
[2024-12-03] MEDS: Potassium Chloride 20 MEQ TAB PO SCH (09:29)
[2024-12-03] MEDS: Dapagliflozin Propanediol 10 MG TAB PO SCH (09:29)
[2024-12-03] MEDS: Amlodipine 10 MG TAB PO SCH (09:29)
[2024-12-03] MEDS: Sodium Chloride 0.9% 1,000 ML IV SCH (17:23)
[2024-12-03] MEDS: Carvedilol 6.25 MG TAB PO SCH (17:23)
[2024-12-04 06:15] LABS: #Basophils 0.04 10x3/uL (0.0-0.2); %Basophils 0.8 % (0.0-1.0); %Eosinophils 1.6 % (0.0-10.0); %Lymphocytes 17.2 % (21.0-51.0); %Monocytes 10.6 % (0.0-10.0); %Neutrophils 69.4 % (42.0-75.0); Hematocrit 28.1 % (36.0-47.0); Hemoglobin 8.9 g/dL (12.0-16.0); Mean Corpuscular HGB CONC 31.7 g/dL (32.0-36.0); Mean Corpuscular Hemoglobin 28.5 pg (27.0-31.0); Mean Corpuscular Volume 90.1 fL (78.0-98.0); Platelet Count 154 10x3/uL (130-400); RBC Distribution Width 15.5 % (11.5-14.5); Red Blood Cell (RBC) Count 3.12 mill/uL (4.20-5.40)
[2024-12-04 06:37] LABS: ALT (SGPT) 8 U/L (Less than 34); AST (SGOT) 18 U/L (11-34); Alkaline Phosphatase 89 U/L (40-110); Anion Gap 13 mmol/L (10-20); BUN (Urea Nitrogen) 23 mg/dL (9.8-20.1); Bilirubin, Total 0.5 mg/dL (0.3-1.2); Calc. Creatinine Clearance 40 mL/min (70-130); Calcium 8.2 mg/dL (7.8-10.44); Carbon Dioxide 23 mmol/L (23-31); Chloride 107 mmol/L (98-107); Estimated GFR 46; Globulin 2.9 g/dL (2.4-3.5); Glucose 76 mg/dL (83-110); Magnesium 1.7 mg/dL (1.6-2.6); Potassium 3.8 mmol/L (3.5-5.1); Protein, Total 5.9 g/dL (5.8-8.1); Sodium 139 mmol/L (136-145)
[2024-12-04 06:51] VITALS: BMI 24.9
[2024-12-04] MEDS ORDERED: Heparin 10,000 UNITS/ 10 ML VIAL ONE (07:44)
[2024-12-04] MEDS ORDERED: fentaNYL 50 mcg/mL 1 mL Vial ONE (08:22)
[2024-12-04] MEDS ORDERED: Midazolam HCl 2 mg/2 ml Vial ONE (08:22)
[2024-12-04] MEDS ORDERED: Verapamil 5 MG/2 ML VIAL ONE (08:39)
[2024-12-04] MEDS ORDERED: Adenosine 6 mg (2 mL) VIAL ONE (08:39)
[2024-12-04] MEDS ORDERED: hydrALAZINE 20 MG/ML VIAL ONE (08:41)
[2024-12-04] MEDS ORDERED: Non-Formulary Item 1 EACH (Hydralazine Hcl [Hydralazine Hcl] 100 MG Tablet) PO SCH (09:00)
[2024-12-04] MEDS ORDERED: Iopamidol 370 76% 100 ML VIAL ONE (10:15)
[2024-12-04] MEDS: hydrALAZINE 25 MG TAB PO SCH (10:50)
[2024-12-04] MEDS ORDERED: Nitroglycerin 0.4 MG TAB (25 Tab Bottle) SL PRN (12:00)
[2024-12-04] MEDS ORDERED: Acetaminophen/Codeine 30-300mg Tablet PO PRN (12:00)
[2024-12-04] MEDS ORDERED: Sodium Chloride 0.9% 200 ML IV PRN (12:00)
[2024-12-04] MEDS: Sodium Chloride 0.9% 1,000 ML IV SCH (13:00)
[2024-12-05] MEDS: Acetaminophen/Codeine 30-300mg Tablet PO PRN (09:49)
[2024-12-05 15:53] VITALS: TEMP 97.5
[2024-12-05 17:45] VITALS: BP 178/74
== END 2024-12-05 18:17 | disposition home or self-care (01) | DRG 286 ==
LOC: ERS 12:52 → ERHOLD 17:20 → 2NO 23:37 → OBSVTOIN 12-01 15:43
PROVIDERS: ADMIT Internal Medicine; ATTEND Internal Medicine
PROC: 4A023N6 Measurement of Cardiac Sampling and Pressure, Right Heart, Percutaneous Approach (ICD-10-PCS; principal; 2024-12-01)
PROC: B2111ZZ Fluoroscopy of Multiple Coronary Arteries using Low Osmolar Contrast (ICD-10-PCS; 2024-12-01)
PROC: B2141ZZ Fluoroscopy of Right Heart using Low Osmolar Contrast (ICD-10-PCS; 2024-12-01)
DX: I25.810 Atherosclerosis of coronary artery bypass graft(s) without angina pectoris (principal); J96.01 Acute respiratory failure with hypoxia; I13.0 Hypertensive heart and chronic kidney disease with heart failure and stage 1 through stage 4 chronic kidney disease, or unspecified chronic kidney disease; I50.32 Chronic diastolic (congestive) heart failure; E83.51 Hypocalcemia; N18.30 Chronic kidney disease, stage 3 unspecified; E03.9 Hypothyroidism, unspecified; F32.A Depression, unspecified; R56.9 Unspecified convulsions; Z88.0 Allergy status to penicillin; Z88.8 Allergy status to other drugs, medicaments and biological substances; Z95.1 Presence of aortocoronary bypass graft; I35.0 Nonrheumatic aortic (valve) stenosis
CPT/HCPCS: 36415; 71045; 71275; 80048; 80053; 82306; 83735; 83880; 83970; 84484; 85025; 93005; 93306; 93457; 93460; 93798; 96372; 96374; 96375; 96376; C1751; C1769; C1887; C1894; G0378; J0153; J0360; J1644; J1940; J2250; J3010; J7030; Q9967